=== PATIENT | female | born 1950 | race Hispanic/Latino ===

== ENCOUNTER 2020-06-06 09:56 | Emergency (ER) | payer OTHER ==
[2020-06-06 11:01] LABS: Urine Bacteria 20-50 /HPF (<20); Urine Culture Reflex Order REFLEXED
[2020-06-06] MEDS ORDERED: HYDROCODONE/APAP 7.5/325 MG TAB ONE (11:16)
[2020-06-06] MEDS ORDERED: IBUPROFEN 400 MG TAB ONE (11:17)
[2020-06-06 11:29] LABS: Urine Blood 2+ (NEG); Urine Glucose NEGATIVE (NEG); Urine Protein 2+ (NEG); Urine Specific Gravity >1.030 (1.005-1.030); Urine pH 5.5 (5.0-7.0)
[2020-06-06] MEDS ORDERED: LIDOCAINE 1% MPF 2 ML AMPULE ONE (11:44)
[2020-06-06] MEDS ORDERED: CEFTRIAXONE 1000 MG/VIAL ONE (11:45)
--- NOTE | 2020-06-06 12:03 | RAD REPORT ---
EXAM DESCRIPTION: RAD - Pelvis - 06/06/2020 11:10 am CLINICAL HISTORY: PAIN COMPARISON: No comparisons TECHNIQUE: AP imaging of the pelvis was obtained. FINDINGS: Detail is limited by body habitus. Lower lumbar degenerative change present but only parti ally imaged. Mild to moderate SI joint degenerative changes are seen. No fracture of the bony pelvis. No pathologic bone process seen. Patient has mild symmetric bilateral hip joint degenerative change. Minimal sclerosis and spurring changes along each superior acetabular rim. Each joint space is narro wed. No acute proximal femur finding. No periarticular abnormality identified. IMPRESSION: Symmetric bilateral hip joint degenerative change with no acute finding. Bilateral SI joint degenerative change also without acute or destructive component.
--- NOTE | 2020-06-06 12:05 | RAD REPORT ---
EXAM DESCRIPTION: RAD - Hip Right 2 View - 06/06/2020 11:10 am CLINICAL HISTORY: PAIN COMPARISON: No comparisons FINDINGS: AP and frog-leg views of the right hip were obtained. Detail is limited by the amount of overlying soft tissues. There is no fracture or dislocation. No AV N or focal head abnormality. Mild right hip joint degenerative change seen. There is minimal sclerosi s and spurring along the superior acetabular rim. Medial joint space is narrowed. No periarticular ma ss or hematoma. IMPRESSION: Right hip joint degenerative changes are present but no acute or destructive finding see n.
--- NOTE | 2020-06-06 12:11 | ER ---
Nurse's Notes [facility] Name: Trisha Watson Age: 69 yrs Sex: Female : 1950 Arrival Date: 06/06/2020 Time: 10:00 Bed 8 Private MD: Diagnosis: Pain in right hip;Urinary tract infection, site not specified Presentation: 06/06 10:15 Chief complaint: Patient states: has chronic right hip pain that gt worse yesterday and iw also also has urgency when she urinates and sometimes she has the urge but can't go, urinary s/s started two days ago. Coronavirus screen: At this time, the client does not indicate any symptoms associated with coronavirus-19. Ebola Screen: Patient negative for fever greater than or equal to 101.5 degrees Fahrenheit, and additional compatible Ebola Virus Disease symptoms Patient denies exposure to infectious person. Patient denies travel to an Ebola-affected area in the 21 days before illness onset. No symptoms or risks identified at this time. Initial Sepsis Screen: Does the patient meet any 2 criteria? No. Patient's initial sepsis screen is negative. Does the patient have a suspected source of infection? No. Patient's initial sepsis screen is negative. Risk Assessment: Do you want to hurt yourself or someone else? Patient reports no desire to harm self or others. Onset of symptoms was June 04, 2020. 10:15 Method Of Arrival: Wheelchair 10:15 Acuity: NABIL 3 iw Historical: - Allergies: 10:18 No Known Allergies; iw - Home Meds: 10:18 None [Active]; iw - PMHx: 10:18 None; iw - PSHx: 10:18 Cholecystectomy; iw - Immunization history:: Adult Immunizations not up to date. - Social history:: Smoking status: Patient reports the use of cigarette tobacco products, smokes one-half pack cigarettes per day. Screenin:20 Abuse screen: Denies threats or abuse. Nutritional screening: No deficits noted. aa5 Tuberculosis screening: No symptoms or risk factors identified. Fall Risk None identified. Assessment: 10:20 General: Appears uncomfortable, Behavior is calm, cooperative. Pain: Complains of pain aa5 in right hip Pain does not radiate. Pain currently is 8 out of 10 on a pain scale. Quality of pain is described as sharp, Is continuous, Aggravated by increased activity, repositioning, walking. Neuro: Level of Consciousness is awake, alert, obeys commands, Oriented to person, place, time, situation. Cardiovascular: Patient's skin is warm and dry. Respiratory: Airway is patent Respiratory effort is even, unlabored, Respiratory pattern is regular, symmetrical. GI: No signs and/or symptoms were reported involving the gastrointestinal system. : Reports urgency, urinary frequency. EENT: No signs and/or symptoms were reported regarding the EENT system. Derm: Skin is pink, warm \T\ dry. Musculoskeletal: Range of motion: intact in all extremities, Reports pain in right hip. 11:08 Reassessment: Patient is alert, oriented x 3, equal unlabored respirations, skin aa5 warm/dry/pink. 11:35 Reassessment: Patient is alert, oriented x 3, equal unlabored respirations, skin aa5 warm/dry/pink. 11:35 Reassessment: Patient states feeling better. aa5 12:25 Reassessment: Patient is alert, oriented x 3, equal unlabored respirations, skin aa5 warm/dry/pink. Pt able to ambulate using cane without difficulty. Pt reports pain has significantly improved. . Vital Signs: 10:15 BP 170 / 85; Pulse 60; Resp 16; Temp 98.5; Pulse Ox 99% on R/A; Weight 90.72 kg; Height iw 5 ft. 3 in. (160.02 cm); Pain 9/10; 12:00 BP 154 / 82; Pulse 62; Resp 18 S; Pulse Ox 99% on R/A; aa5 10:15 Body Mass Index 35.43 (90.72 kg, 160.02 cm) iw ED Course: 10:00 Patient arrived in ED. as 10:17 Triage completed. iw 10:18 Arm band placed on. iw 10:20 Boyd Doran PA is PHCP. cp 10:20 Boyd Nolasco MD is Attending Physician. cp 10:20 Sanjana Boss, ISAK is Primary Nurse. aa5 10:20 Patient has correct armband on for positive identification. Bed in low position. Call aa5 light in reach. Side rails up X2. Pulse ox on. NIBP on. 11:10 XRAY Pelvis In Process Unspecified. EDMS 11:10 XRAY Hip RIGHT 2 view In Process Unspecified. EDMS 12:25 No provider procedures requiring assistance completed. Patient did not have IV access aa5 during this emergency room visit. Administered Medications: 11:08 Drug: Ibuprofen 800 mg Route: PO; aa5 11:35 Follow up: Response: No adverse reaction aa5 11:08 Drug: Hydrocodone-Acetaminophen (7.5 mg-325 mg) 2 tabs Route: PO; aa5 11:35 Follow up: Response: No adverse reaction aa5 11:28 CANCELLED (Physician Discretion): Rocephin - (cefTRIAXone) 1 grams IVPB once over 30 aa5 mins; (mix in 50 mL NS) 11:41 Drug: Rocephin (cefTRIAXone) 1 grams Route: IM; Site: right vastus lateralis; jl7 12:00 Follow up: Response: No adverse reaction aa5 Outcome: 12:11 Discharge ordered by MD. cp 12:25 Discharged to home ambulatory. aa5 12:25 Condition: improved 12:25 Discharge instructions given to patient, Instructed on discharge instructions, follow up and referral plans. medication usage, Demonstrated understanding of instructions, follow-up care, medications, Prescriptions given X 3. 12:26 Patient left the ED. iw Addendum: 06/09/2020 07:11 Addendum: Culture Results: Positive urine culture. No further action required. Bacteria e b sensitive to prescribed antibiotic. Signatures: Dispatcher [employer] EDMS Steff Mccarty Irene, ISAK PARISI iw Sanjana Boss RN RN aa5 Boyd Doran PA PA cp Leal, Jahala, RN RN jl7 Bree Gustafson
--- NOTE | 2020-06-06 12:11 | EDPHYS ---
Physician Documentation [facility] Name: Trisha Watson Age: 69 yrs Sex: Female : 1950 Arrival Date: 06/06/2020 Time: 10:00 Bed 8 Private MD: ED Physician Boyd Nolasco HPI: 06/06 10:30 This 69 yrs old Female presents to ER via Wheelchair with complaints of Hip cp Pain, Urinary Problem. 10:30 The patient or guardian reports pain. patient reports chronic hip pain that worsened cp yesterday. Denies injury. The complaints affect the right hip. Associated signs and symptoms: Pertinent positives: urinary frequency and urgency, Pertinent negatives: abdominal pain, chest pain, fever, incontinence, low back pain. Severity of symptoms: in the emergency department the symptoms are unchanged, despite home interventions. Historical: - Allergies: 10:18 No Known Allergies; iw - Home Meds: 10:18 None [Active]; iw - PMHx: 10:18 None; iw - PSHx: 10:18 Cholecystectomy; iw - Immunization history:: Adult Immunizations not up to date. - Social history:: Smoking status: Patient reports the use of cigarette tobacco products, smokes one-half pack cigarettes per day. ROS: 10:35 Constitutional: Negative for body aches, chills, fever, poor PO intake. cp 10:35 Eyes: Negative for injury, pain, redness, and discharge. cp 10:35 ENT: Negative for ear pain, sore throat, difficulty swallowing, difficulty handling secretions. 10:35 Cardiovascular: Negative for chest pain, edema, palpitations. 10:35 Respiratory: Negative for cough, shortness of breath, wheezing. 10:35 Abdomen/GI: Negative for abdominal pain, nausea, vomiting, and diarrhea. 10:35 Back: Negative for pain at rest, pain with movement. 10:35 : Positive for urinary frequency, small amounts, Negative for burning with urination. 10:35 Skin: Negative for rash. 10:35 Neuro: Negative for altered mental status, weakness. 10:35 All other systems are negative. Exam: 10:45 Constitutional: The patient appears in no acute distress, alert, awake, cp non-diaphoretic, non-toxic, well developed, well nourished, obese. 10:45 Head/Face: Normocephalic, atraumatic. cp 10:45 Eyes: Periorbital structures: appear normal, Conjunctiva: normal, no exudate, no injection, Sclera: no appreciated abnormality, Lids and lashes: appear normal, bilaterally. 10:45 ENT: External ear(s): are unremarkable, Nose: is normal, Posterior pharynx: Airway: no evidence of obstruction, patent. 10:45 Neck: ROM/movement: is normal, is supple, without pain, no range of motions limitations, no nuchal rigidity. 10:45 Chest/axilla: Inspection: normal, Palpation: is normal, no crepitus, no tenderness. 10:45 Cardiovascular: Rate: normal, Rhythm: regular. 10:45 Respiratory: the patient does not display signs of respiratory distress, Respirations: normal, no use of accessory muscles, no retractions, labored breathing, is not present, Breath sounds: are clear throughout, no decreased breath sounds. 10:45 Abdomen/GI: Inspection: abdomen appears normal, Bowel sounds: active, all quadrants, Palpation: abdomen is soft and non-tender, in all quadrants, voluntary guarding, is not appreciated, involuntary guarding, is not appreciated. 10:45 Back: pain, is absent, ROM is normal. 10:45 Musculoskeletal/extremity: ROM: limited passive range of motion due to pain, in the right hip, Perfusion: the extremity is normally perfused throughout, the right leg Sensation intact. Joints: the right hip displays painful range of motion, tenderness. 10:45 Skin: no rash present. 10:45 Neuro: Orientation: to person, place \T\ time. Mentation: is normal, Motor: moves all fours, strength is normal, Sensation: no obvious gross deficits. Vital Signs: 10:15 BP 170 / 85; Pulse 60; Resp 16; Temp 98.5; Pulse Ox 99% on R/A; Weight 90.72 kg; Height iw 5 ft. 3 in. (160.02 cm); Pain 9/10; 12:00 BP 154 / 82; Pulse 62; Resp 18 S; Pulse Ox 99% on R/A; aa5 10:15 Body Mass Index 35.43 (90.72 kg, 160.02 cm) iw MDM: 10:22 Patient medically screened. cp 11:00 Differential diagnosis: hip fracture, intertrochanteric fracture, femoral neck cp fracture, femoral shaft fracture. 12:09 Data reviewed: vital signs, nurses notes, lab test result(s), urinalysis, radiologic cp studies, plain films. Counseling: I had a detailed discussion with the patient and/or guardian regarding: the historical points, exam findings, and any diagnostic results supporting the discharge/admit diagnosis, lab results, radiology results, the need for outpatient follow up, a family practitioner, to return to the emergency department if symptoms worsen or persist or if there are any questions or concerns that arise at home. Response to treatment: the patient's symptoms have markedly improved after treatment, and as a result, I will discharge patient. 06/06 10:23 Order name: Urine Microscopic Only; Complete Time: 11:25 cp 06/06 11:25 Interpretation: Normal except: UWBC LOADED; URBC 5-10; UBACT 20-50. cp 06/06 11:02 Order name: Urine Culture EDMS 06/06 10:44 Order name: XRAY Pelvis; Complete Time: 12:09 cp 06/06 10:44 Order name: XRAY Hip RIGHT 2 view; Complete Time: 12:09 cp 06/06 11:14 Order name: Urine Dipstick--Ancillary (enter results); Complete Time: 12:09 bd 06/06 12:09 Interpretation: Normal except: USPGR >1.030; UBLD 2+; UPROT 2+; U NIT POSITIVE; UESTR cp 1+. 06/06 10:23 Order name: Urine Dipstick-Ancillary (obtain specimen); Complete Time: 10:42 cp 06/06 11:26 Order name: [facility] [place]. Order: ambulate patient please; Complete Time: 12:26 cp Administered Medications: 11:08 Drug: Ibuprofen 800 mg Route: PO; aa5 11:35 Follow up: Response: No adverse reaction aa5 11:08 Drug: Hydrocodone-Acetaminophen (7.5 mg-325 mg) 2 tabs Route: PO; aa5 11:35 Follow up: Response: No adverse reaction aa5 11:28 CANCELLED (Physician Discretion): Rocephin - (cefTRIAXone) 1 grams IVPB once over 30 aa5 mins; (mix in 50 mL NS) 11:41 Drug: Rocephin (cefTRIAXone) 1 grams Route: IM; Site: right vastus lateralis; jl7 12:00 Follow up: Response: No adverse reaction aa5 Disposition: 06/07 10:47 Co-signature as Attending Physician, Boyd Nolasco MD I agree with the assessment and [facility] plan of care. Disposition: 06/06/20 12:11 Discharged to Home. Impression: Pain in right hip, Urinary tract infection, site not specified. - Condition is Stable. - Discharge Instructions: Urinary Tract Infection, Adult, Hip Pain. - Prescriptions for Mobic 7.5 mg Oral Tablet - take 1 tablet by ORAL route once daily take with food; 20 tablet. Tramadol 50 mg Oral Tablet - take 1 tablet by ORAL route every 8 hours as needed; 12 tablet. Augmentin 875- 125 mg Oral Tablet - take 1 tablet by ORAL route every 12 hours for 7 days; 14 tablet. - Medication Reconciliation Form, Thank You Letter, Antibiotic Education, Prescription Opioid Use form. - Follow up: Private Physician; When: 2 - 3 days; Reason: Recheck today's complaints. - Problem is new. - Symptoms have improved. Signatures: Dispatcher [employer] EDBoyd Cast MD MD cha Williams, Irene RN RN Sanjana Morrissey RN RN aa5 Boyd Doran PA PA Vianey Hernadez RN RN jl7 Corrections: (The following items were deleted from the chart) 06/06 11:28 11:26 Rocephin - (cefTRIAXone) 1 grams IVPB once over 30 mins; (mix in 50 mL NS) aa5 ordered. cp 12:26 12:11 06/06/2020 12:11 Discharged to Home. Impression: Pain in right hip; Urinary tract iw infection, site not specified. Condition is Stable. Forms are Medication Reconciliation Form, Thank You Letter, Antibiotic Education, Prescription Opioid Use. Follow up: Private Physician; When: 2 - 3 days; Reason: Recheck today's complaints. Problem is new. Symptoms have improved. cp
[2020-06-06 12:31] VITALS: BP 170/85; TEMP 98.5; O2SAT 99
== END 2020-06-06 12:26 | disposition home or self-care (01) ==
LOC: ER 09:56
DX: N39.0 Urinary tract infection, site not specified (principal); F17.210 Nicotine dependence, cigarettes, uncomplicated
CPT/HCPCS: 87088; 87086; 87077; 87186; 72170; 73502; 96372; 99284; J2001; 81003; 81015

== ENCOUNTER → 2023-11-02 | Emergency (ER) | payer OTHER ==
[~2023-11-02] MED LIST: HYDROCODONE/APAP 7.5/325 MG TAB ONE
--- OUTSIDE RECORDS SUMMARY | 2023-11-02 07:59 | XMS REPORT | Continuity of Care Document ---
Author Name Unknown Address [address] [facility] [address] [place] [address] [facility] thconnect Address [address] [facility] [place] [address] Care Team Providers Care Field Marketing Representative Name Role Phone Regina Shepard Primary Care Physician [phone] JOYCE WEBER Attending Clinician Joyce Perry MD Attending Clinician [phone] Doctor Unassigned, [place] Attending Clinician U JOYCE Hodges Admitting Clinician Joyce Perry MD Admitting Clinician [phone] Payers Payer Name Policy Type Policy Number Effective Date Expirati on Date Source [facility] DUAL COMP HMO D SNP [id number] 2023 00:00:00 [employer] [id number] 2022 00:00:00 Allergies, Adverse Reactions, Alerts Allergy Name Allergy Type Status Severity Reaction(s) Onset Date Inactive Date Treating Clinician Comments Source NO KNOWN ALLERGIE S Drug Class Active [facility] Social History Social Habit Start Date Stop Date Quantity Comments Source History of tobacco use Cigarette Smoker [facility] History of Social function 2023-03-11 00:00:00 2023-03-11 00:00:00 [facility] Tobacco use and exposure 2023-02-19 00:00:00 2023-02-19 00:00:00 Smokeless tobacco non-user [facility] Tobacco Comment 2023-02-19 00:00:00 2023-02-19 00:00:[address] [facility] Sex Assigned At 1950 00:00:00 1950 00:00:00 [facility] Smoking Status Start Date Stop Date Source Tobacco smoking consumption unknown [facility] Smokes tobacco daily 2023-02-19 00:00:00 [facility] Medications Ordered Medication Name Filled Medication Name Start Date Stop Date Current Medication? Ordering Clinician Indication Dosage Frequency Signature (SIG) Comments Components Source lactated ringers IV infusion 1,000 mL 03-11 15:00: 00 Yes 1000mL at 50 mL/hr, 1,000 mL, IV Infusion, CONTINUOUS , Starting on Thu03/11/23 at 1000, Until Discontinu ed, Routine, PACU [facility] lactated ringers IV infusion 1,000 mL 03-11 15:00: 00 03-11 18:06 :50 No 1000mL at 50 mL/hr, 1,000 mL, IV Infusion, CONTINUOUS , Starting on Thu03/11/23 at 1000, Until Thu03/11/23 at 1306, Routine, PACU [facility] HYDROmorphO ne (DILAUDID) injection 0.2 mg 03-11 14:54: 48 Yes .2mg 0.2 mg, Slow IV Push, Q5MIN PRN, 10 doses, Starting on Thu03/11/23 at 0954, Until Discontinu ed, Routine, Pain (scale 7-10), PACU
Us e approved by (Faculty): PACU USE -ANESTHESI A SERVICE-HY DROMORPHON E INJECTIONS [facility] FENTanyl PF (SUBLIMAZE (PF)) injection 25 mcg 03-11 14:54: 48 Yes 25ug 25 mcg, Slow IV Push, Q5MIN PRN, 4 doses, Starting on Thu03/11/23 at 0954, Until Discontinu ed, Routine, Pain (scale 4-6), PACU [facility] proMETHazin e (PHENERGAN) 12.5 mg in NaCl 0.9% (NS) 50 mL IV piggyback 03-11 14:54: 48 Yes 12.5mg 12.5 mg, IV Piggyback, PRN, 1 dose, Starting on Thu03/11/23 at 0954, Until Discontinu ed, Routine, Nausea and Vomiting (N/V), PACU [facility] HYDROmorphO ne (DILAUDID) injection 0.2 mg 03-11 14:54: 48 03-11 18:06 :49 No .2mg 0.2 mg, Slow IV Push, Q5MIN PRN, 10 doses, Starting on Thu03/11/23 at 0954, Until Thu03/11/23 at 1306, Routine, Pain (scale 7-10), PACU
Us e approved by (Faculty): PACU USE -ANESTHESI A SERVICE-HY DROMORPHON E INJECTIONS [facility] FENTanyl PF (SUBLIMAZE (PF)) injection 25 mcg 03-11 14:54: 48 03-11 18:06 :49 No 25ug 25 mcg, Slow IV Push, Q5MIN PRN, 4 doses, Starting on Thu03/11/23 at 0954, Until Thu03/11/23 at 1306, Routine, Pain (scale 4-6), PACU [facility] proMETHazin e (PHENERGAN) 12.5 mg in NaCl 0.9% (NS) 50 mL IV piggyback 03-11 14:54: 48 03-11 18:06 :49 No 12.5mg 12.5 mg, IV Piggyback, PRN, 1 dose, Starting on Thu03/11/23 at 0954, Until Thu03/11/23 at 1306, Routine, Nausea and Vomiting (N/V), PACU [facility] sodium chloride (NS) injection 03-11 14:37: 00 03-11 14:47 :58 No PRN, Starting on Thu03/11/23 at 0937, Until Thu03/11/23 at 0947, Routine, Intra-op [facility] neomycin-po lymyxin-dex amethasone (MAXITROL) 3.5 mg/g-10,000 unit/g-0.1 % ophthalmic ointment 03-11 14:21: 00 03-11 14:47 :58 No PRN, Starting on Thu03/11/23 at 0921, Until Thu03/11/23 at 09, Routine, Intra-op [facility] EPINEPHrine 1:1,000 (1 mg/mL) (ADRENALIN) injection 03-11 14:20: 00 03-11 14:47 :58 No PRN, Starting on Thu03/11/23 at 0920, Until Thu03/11/23 at 09, Routine, Intra-op [facility] water for irrigation irrigation solution 03-11 14:19: 00 03-11 14:47 :58 No PRN, Starting on Thu03/11/23 at 0919, Until Thu03/11/23 at 09, Routine, Intra-op [facility] eye block syringe 11 mL 03-11 14:14: 00 03-11 14:47 :58 No PRN, Starting on Thu03/11/23 at 0914, Until Thu03/11/23 at 09, Intra-op [facility] Hyaluronida se, Human Recomb. (HYLENEX) injection 03-11 14:14: 00 03-11 14:47 :58 No PRN, Starting on Thu03/11/23 at 0914, Until Thu03/11/23 at 0947, Routine, Intra-op [facility] chondroitin sulf-sod hyaluronate (DUOVISC VISCO ELASTIC) intraocular injection 03-11 14:14: 00 03-11 14:47 :58 No PRN, Starting on Thu03/11/23 at 0914, Until Thu03/11/23 at 0947, Routine, Intra-op [facility] dexamethaso ne (DECADRON PHOSPHATE) injection 03-11 14:13: 00 03-11 14:47 :58 No PRN, Starting on Thu03/11/23 at 0913, Until Thu03/11/23 at 0947, Routine, Intra-op [facility] ceFAZolin (ANCEF) injection 03-11 14:13: 00 03-11 14:47 :58 No PRN, Starting on Thu03/11/23 at 0913, Until Thu03/11/23 at 0947, JL, Intra-op [facility] carbachoL (MIOSTAT) 0.01 % intraocular injection 03-11 14:13: 00 03-11 14:47 :58 No PRN, Starting on Thu03/11/23 at 0913, Until Thu03/11/23 at 0947, Routine, Intra-op [facility] balanced salt irrig soln comb1 (BSS PLUS) ophthalmic solution 500 mL bag 03-11 14:12: 00 03-11 14:47 :58 No PRN, Starting on Thu03/11/23 at 0912, Until Thu03/11/23 at 0947, Routine, Intra-op [facility] cyclopent 1%-tropic 1%-phenyl 2.5%-ketor 0.5% (MYDRIATIC #5) ophthalmic solution syringe 0.5 mL 03-11 13:30: 00 03-11 13:41 :00 No .5mL 0.5 mL, Right Eye, ONCE, 1 dose, On Thu03/11/23 at 0830, Routine, DSU Pre-op [facility] lactated ringers IV infusion 1,000 mL 03-11 13:30: 00 03-11 13:41 :00 No 1000mL at 42 mL/hr, 1,000 mL, IV Infusion, ONCE, 1 dose, On Thu03/11/23 at 0830, Routine, DSU Pre-op [facility] cyclopent 1%-tropic 1%-phenyl 2.5%-ketor 0.5% (MYDRIATIC #5) ophthalmic solution syringe 0.5 mL 03-11 13:30: 00 03-11 13:41 :00 No .5mL 0.5 mL, Right Eye, ONCE, 1 dose, On Thu03/11/23 at 0830, Routine, DSU Pre-op [facility] lactated ringers IV infusion 1,000 mL 03-11 13:30: 00 03-11 13:41 :00 No 1000mL at 42 mL/hr, 1,000 mL, IV Infusion, ONCE, 1 dose, On Thu03/11/23 at 0830, Routine, DSU Pre-op [facility] pioglitazon e 45 mg tablet 03-11 11:01: 44 Yes 45mg Take 1 tablet by mouth in the morning. [facility] metFORMIN 500 mg 24 hr tablet 03-11 11:01: 44 Yes 500mg Take 1 tablet by mouth daily with breakfast. [facility] diclofenac 50 mg tablet 03-11 11:01: 44 Yes 50mg Take 1 tablet by mouth in the morning and 1 tablet at noon and 1 tablet in the evening. [facility] semaglutide 14 mg Tab 03-11 11:01: 44 Yes Take by mouth weekly. [facility] cyclobenzap rine 10 mg tablet 03-11 11:01: 44 Yes 10mg Take 1 tablet by mouth in the morning and 1 tablet at noon and 1 tablet in the evening. [facility] pioglitazon e 45 mg tablet 03-11 11:01: 44 Yes 45mg Take 1 tablet by mouth in the morning. [facility] metFORMIN 500 mg 24 hr tablet 03-11 11:01: 44 Yes 500mg Take 1 tablet by mouth daily with breakfast. [facility] diclofenac 50 mg tablet 03-11 11:01: 44 Yes 50mg Take 1 tablet by mouth in the morning and 1 tablet at noon and 1 tablet in the evening. [facility] semaglutide 14 mg Tab 03-11 11:01: 44 Yes Take by mouth weekly. [facility] cyclobenzap rine 10 mg tablet 03-11 11:01: 44 Yes 10mg Take 1 tablet by mouth in the morning and 1 tablet at noon and 1 tablet in the evening. [facility] lactated ringers IV infusion 1,000 mL 02-25 15:45: 00 Yes 1000mL at 50 mL/hr, 1,000 mL, IV Infusion, CONTINUOUS , Starting on Thu02/25/23 at 1045, Until Discontinu ed, Routine, PACU [facility] lactated ringers IV infusion 1,000 mL 02-25 15:45: 00 02-25 18:07 :56 No 1000mL at 50 mL/hr, 1,000 mL, IV Infusion, CONTINUOUS , Starting on Thu02/25/23 at 1045, Until Thu02/25/23 at 1307, Routine, PACU [facility] HYDROmorphO ne (DILAUDID) injection 0.2 mg 02-25 15:38: 13 Yes .2mg 0.2 mg, Slow IV Push, Q5MIN PRN, 10 doses, Starting on Thu02/25/23 at 1038, Until Discontinu ed, Routine, Pain (scale 7-10), PACU
Us e approved by (Faculty): PACU USE -ANESTHESI A SERVICE-HY DROMORPHON E INJECTIONS [facility] FENTanyl PF (SUBLIMAZE (PF)) injection 25 mcg 02-25 15:38: 13 Yes 25ug 25 mcg, Slow IV Push, Q5MIN PRN, 4 doses, Starting on Thu02/25/23 at 1038, Until Discontinu ed, Routine, Pain (scale 4-6), PACU [facility] HYDROmorphO ne (DILAUDID) injection 0.2 mg 02-25 15:38: 13 02-25 18:07 :56 No .2mg 0.2 mg, Slow IV Push, Q5MIN PRN, 10 doses, Starting on Thu02/25/23 at 1038, Until Thu02/25/23 at 1307, Routine, Pain (scale 7-10), PACU
Us e approved by (Faculty): PACU USE -ANESTHESI A SERVICE-HY DROMORPHON E INJECTIONS [facility] FENTanyl PF (SUBLIMAZE (PF)) injection 25 mcg 02-25 15:38: 13 02-25 18:07 :56 No 25ug 25 mcg, Slow IV Push, Q5MIN PRN, 4 doses, Starting on Thu02/25/23 at 1038, Until Thu02/25/23 at 1307, Routine, Pain (scale 4-6), PACU [facility] proMETHazin e (PHENERGAN) 12.5 mg in NaCl 0.9% (NS) 50 mL IV piggyback 02-25 15:38: 12 Yes 12.5mg 12.5 mg, IV Piggyback, PRN, 1 dose, Starting on Thu02/25/23 at 1038, Until Discontinu ed, Routine, Nausea and Vomiting (N/V), PACU [facility] proMETHazin e (PHENERGAN) 12.5 mg in NaCl 0.9% (NS) 50 mL IV piggyback 02-25 15:38: 12 02-25 18:07 :56 No 12.5mg 12.5 mg, IV Piggyback, PRN, 1 dose, Starting on Thu02/25/23 at 1038, Until Thu02/25/23 at 1307, Routine, Nausea and Vomiting (N/V), PACU [facility] sodium chloride (NS) injection 02-25 15:28: 00 02-25 15:53 :35 No PRN, Starting on Thu02/25/23 at 1028, Until Thu02/25/23 at 1053, Routine, Intra-op [facility] neomycin-po lymyxin-dex amethasone (MAXITROL) 3.5 mg/g-10,000 unit/g-0.1 % ophthalmic ointment 02-25 15:28: 00 02-25 15:53 :35 No PRN, Starting on Thu02/25/23 at 1028, Until Thu02/25/23 at 1053, Routine, Intra-op [facility] dexamethaso ne (DECADRON PHOSPHATE) injection 02-25 15:28: 00 02-25 15:53 :35 No PRN, Starting on Thu02/25/23 at 1028, Until Thu02/25/23 at 1053, Routine, Intra-op [facility] ceFAZolin (ANCEF) injection 02-25 15:28: 00 02-25 15:53 :35 No PRN, Starting on Thu02/25/23 at 1028, Until Thu02/25/23 at 1053, JL, Intra-op [facility] carbachoL (MIOSTAT) 0.01 % intraocular injection 02-25 15:27: 00 02-25 15:53 :35 No PRN, Starting on Thu02/25/23 at 1027, Until Thu02/25/23 at 1053, Routine, Intra-op [facility] chondroitin sulf-sod hyaluronate (DUOVISC VISCO ELASTIC) intraocular injection 02-25 15:18: 00 02-25 15:53 :35 No PRN, Starting on Thu02/25/23 at 1018, Until Thu02/25/23 at 1053, Routine, Intra-op [facility] EPINEPHrine 1:1,000 (1 mg/mL) (ADRENALIN) injection 02-25 15:17: 00 02-25 15:53 :35 No PRN, Starting on Thu02/25/23 at 1017, Until Thu02/25/23 at 1053, Routine, Intra-op [facility] balanced salt irrig soln comb1 (BSS PLUS) ophthalmic solution 500 mL bag 02-25 15:17: 00 02-25 15:53 :35 No PRN, Starting on Thu02/25/23 at 1017, Until Thu02/25/23 at 1053, Routine, Intra-op [facility] water for irrigation irrigation solution 02-25 15:11: 00 02-25 15:53 :35 No PRN, Starting on Thu02/25/23 at 1011, Until Thu02/25/23 at 1053, Routine, Intra-op [facility] Hyaluronida se, Human Recomb. (HYLENEX) injection 02-25 15:07: 00 02-25 15:53 :35 No PRN, Starting on Thu02/25/23 at 1007, Until Thu02/25/23 at 1053, Routine, Intra-op [facility] eye block syringe 11 mL 02-25 15:07: 00 02-25 15:53 :35 No PRN, Starting on Thu02/25/23 at 1007, Until Thu02/25/23 at 1053, Intra-op [facility] cyclopent 1%-tropic 1%-phenyl 2.5%-ketor 0.5% (MYDRIATIC #5) ophthalmic solution syringe 0.5 mL 02-25 14:30: 00 02-25 13:44 :00 No .5mL 0.5 mL, Left Eye, ONCE, 1 dose, On Thu02/25/23 at 0930, Routine, DSU Pre-op [facility] cyclopent 1%-tropic 1%-phenyl 2.5%-ketor 0.5% (MYDRIATIC #5) ophthalmic solution syringe 0.5 mL 02-25 14:30: 00 02-25 13:44 :00 No .5mL 0.5 mL, Left Eye, ONCE, 1 dose, On Thu02/25/23 at 0930, Routine, DSU Pre-op [facility] lactated ringers IV infusion 1,000 mL 02-25 13:45: 00 02-25 13:41 :00 No 1000mL at 42 mL/hr, 1,000 mL, IV Infusion, ONCE, 1 dose, On Thu02/25/23 at 0845, Routine, DSU Pre-op [facility] lactated ringers IV infusion 1,000 mL 02-25 13:45: 00 02-25 13:41 :00 No 1000mL at 42 mL/hr, 1,000 mL, IV Infusion, ONCE, 1 dose, On Thu02/25/23 at 0845, Routine, DSU Pre-op [facility] pioglitazon e 45 mg tablet 02-25 11:07: 55 Yes 45mg Take 1 tablet by mouth in the morning. [facility] metFORMIN 500 mg 24 hr tablet 12 11:07: 55 Yes 500mg Take 1 tablet by mouth daily with breakfast. [facility] diclofenac 50 mg tablet 02-25 11:07: 55 Yes 50mg Take 1 tablet by mouth in the morning and 1 tablet at noon and 1 tablet in the evening. [facility] semaglutide 14 mg Tab 02-25 11:07: 55 Yes Take by mouth weekly. [facility] cyclobenzap rine 10 mg tablet 02-25 11:07: 55 Yes 10mg Take 1 tablet by mouth in the morning and 1 tablet at noon and 1 tablet in the evening. [facility] pioglitazon e 45 mg tablet 02-25 11:07: 55 Yes 45mg Take 1 tablet by mouth in the morning. [facility] metFORMIN 500 mg 24 hr tablet 02-25 11:07: 55 Yes 500mg Take 1 tablet by mouth daily with breakfast. [facility] diclofenac 50 mg tablet 02-25 11:07: 55 Yes 50mg Take 1 tablet by mouth in the morning and 1 tablet at noon and 1 tablet in the evening. [facility] semaglutide 14 mg Tab 02-25 11:07: 55 Yes Take by mouth weekly. [facility] cyclobenzap rine 10 mg tablet 02-25 11:07: 55 Yes 10mg Take 1 tablet by mouth in the morning and 1 tablet at noon and 1 tablet in the evening. [facility] pioglitazon e 45 mg tablet 02-25 11:07: 55 Yes 45mg Take 1 tablet by mouth in the morning. [facility] metFORMIN 500 mg 24 hr tablet 02-25 11:07: 55 Yes 500mg Take 1 tablet by mouth daily with breakfast. [facility] diclofenac 50 mg tablet 02-25 11:07: 55 Yes 50mg Take 1 tablet by mouth in the morning and 1 tablet at noon and 1 tablet in the evening. [facility] semaglutide 14 mg Tab 02-25 11:07: 55 Yes Take by mouth weekly. [facility] cyclobenzap rine 10 mg tablet 02-25 11:07: 55 Yes 10mg Take 1 tablet by mouth in the morning and 1 tablet at noon and 1 tablet in the evening. [facility] lisinopril 10 mg tablet 2016-08 00:00: 00 Yes 10mg Take 1 tablet by mouth at bedtime. [facility] sulfamethox azole-trime thoprim 800-160 mg per tablet 2016-08 00:00: 00 Yes 1{tbl} Take 1 tablet by mouth every 12 (twelve) hours. [facility] lisinopril 10 mg tablet 2016-08 00:00: 00 Yes 10mg Take 1 tablet by mouth at bedtime. [facility] sulfamethox azole-trime thoprim 800-160 mg per tablet 2016-08 00:00: 00 Yes 1{tbl} Take 1 tablet by mouth every 12 (twelve) hours. [facility] lisinopril 10 mg tablet 2016-08 00:00: 00 Yes 10mg Take 1 tablet by mouth at bedtime. [facility] sulfamethox azole-trime thoprim 800-160 mg per tablet 2016-08 00:00: 00 Yes 1{tbl} Take 1 tablet by mouth every 12 (twelve) hours. [facility] lisinopril 10 mg tablet 2016-08 00:00: 00 Yes 10mg Take 1 tablet by mouth at bedtime. [facility] sulfamethox azole-trime thoprim 800-160 mg per tablet 2016-08 00:00: 00 Yes 1{tbl} Take 1 tablet by mouth every 12 (twelve) hours. [facility] lisinopril 10 mg tablet 2016-08 00:00: 00 Yes 10mg Take 1 tablet by mouth at bedtime. [facility] sulfamethox azole-trime thoprim 800-160 mg per tablet 2016-08 00:00: 00 Yes 1{tbl} Take 1 tablet by mouth every 12 (twelve) hours. [facility] lisinopril 10 mg tablet 2016-08 00:00: 00 Yes 10mg Take 1 tablet by mouth at bedtime. [facility] sulfamethox azole-trime thoprim 800-160 mg per tablet 2016-08 00:00: 00 Yes 1{tbl} Take 1 tablet by mouth every 12 (twelve) hours. [facility] Vital Signs Vital Name Observation Time Observation Value Comments S ource Respiratory rate 2023-03-11 15:04:00 20 /min [facility] Oxygen saturation in Arterial blood by Pulse oximetry 2023-03-11 15:04:00 99 /min [facility] Systolic blood pressure 2023-03-11 15:02:00 107 mm[Hg] [facility] Diastolic blood pressure 2023-03-11 15:02:00 64 mm[Hg] [facility] Heart rate 2023-03-11 14:45:00 61 /min [facility] Body temperature 2023-03-11 14:42:[address] [facility] Body height 2023-03-05 15:00:00 157.5 cm [facility] Body weight 2023-03-05 15:00:00 92.534 kg [facility] BMI 2023-03-05 15:00:00 37.31 kg/m2 [facility] Systolic blood pressure 2023-03-11 13:41:00 188 mm[Hg] [facility] Diastolic blood pressure 2023-03-11 13:41:00 68 mm[Hg] [facility] Heart rate 2023-03-11 13:30:00 69 /min [facility] Body temperature 2023-03-11 13:30:[address] [facility] Respiratory rate 2023-03-11 13:30:00 21 /min [facility] Oxygen saturation in Arterial blood by Pulse oximetry 2023-03-11 13:30:00 99 /min [facility] Body height 2023-03-05 15:00:00 157.5 cm [facility] Body weight 2023-03-05 15:00:00 92.534 kg [facility] BMI 2023-03-05 15:00:00 37.31 kg/m2 [facility] Systolic blood pressure 2023-02-25 15:45:00 191 mm[Hg] [facility] Diastolic blood pressure 2023-02-25 15:45:00 52 mm[Hg] [facility] Heart rate 2023-02-25 15:45:00 56 /min [facility] Respiratory rate 2023-02-25 15:45:00 25 /min [facility] Oxygen saturation in Arterial blood by Pulse oximetry 2023-02-25 15:45:00 96 /min [facility] Body temperature 2023-02-25 15:32:[address] [facility] Body height 2023-02-19 16:00:00 157.5 cm [facility] Body weight 2023-02-19 16:00:00 95.255 kg [facility] BMI 2023-02-19 16:00:00 38.41 kg/m2 [facility] Systolic blood pressure 2023-02-25 13:35:00 192 mm[Hg] [facility] Diastolic blood pressure 2023-02-25 13:35:00 65 mm[Hg] [facility] Heart rate 2023-02-25 13:35:00 60 /min [facility] Body temperature 2023-02-25 13:35:[address] [facility] Respiratory rate 2023-02-25 13:35:00 14 /min [facility] Oxygen saturation in Arterial blood by Pulse oximetry 2023-02-25 13:35:00 98 /min [facility] Body height 2023-02-19 16:00:00 157.5 cm [facility] Body weight 2023-02-19 16:00:00 95.255 kg [facility] BMI 2023-02-19 16:00:00 38.41 kg/m2 [facility] Procedures Procedure Date / Time Performed Performing Clinician Source PHACOEMULSIFICATION OF CATARACT WITH INTRAOCULAR LENS IMPLANT 2023-03-11 14:04:[address] [facility] POCT GLUCOSE (AUTOMATED) 2023-03-11 13:36:[address] [facility] POCT GLUCOSE (AUTOMATED) 2023-03-11 13:36:[address] [facility] PHACOEMULSIFICATION OF CATARACT WITH INTRAOCULAR LENS IMPLANT 2023-02-25 14:57:[address] [facility] POCT GLUCOSE (AUTOMATED) 2023-02-25 13:34:[address] [facility] POCT GLUCOSE (AUTOMATED) 2023-02-25 13:34:[address] [facility] DAY SURGERY - ADC 2023-02-25 05:01:00 Doctor Unassigned, [place] [facility] ASSIGNMENT OF BENEFITS 2023-02-16 21:56:35 Doctor Unassigned, [place] [facility] Encounters Start Date/Time End Date/Time Encounter Type Admission Type Attending [facility] Care Department Encounter ID Source 2023-10-16 16:04:41 2023-10-16 16:04:41 Outpatient SFA SFA [id number] Steven Henderson 2023-10-14 11:11:38 2023-10-14 11:11:38 Outpatient SFA SFA [id number] Steven Henderson 2023-10-13 08:21:50 2023-10-13 08:21:50 Outpatient SFA SFA [id number] Steven Henderson 2023-09-29 16:51:39 2023-09-29 16:51:39 Outpatient SFA SFA [id number] Steven Henderson 2023-09-04 15:41:00 2023-09-04 15:41:00 Outpatient SFA SFA [id number] Steven Henderson 2023-09-01 14:32:18 2023-09-01 14:32:18 Outpatient SFA SFA [id number] Steven Henderson 2023-06-19 09:26:34 2023-06-19 09:26:34 Outpatient SFA [id number] [id number] Steven Henderson 2023-03-11 08:26:00 2023-03-11 10:10:00 Outpatient R JOYCE WEBER [facility] [id number] [facility] 2023-03-11 08:26:00 2023-03-11 10:10:00 Hospital Encounter Joyce Weber [facility] [id number] [facility] 2023-03-11 09:02:00 2023-03-11 09:36:00 Surgery MartínJoyce [facility] [id number] [facility] 2023-02-25 08:26:00 2023-02-25 11:07:00 Outpatient R JOYCE WEBER [facility] [id number] [facility] 2023-02-25 08:26:00 2023-02-25 11:07:00 Hospital Encounter [place] [facility] [id number] [facility] 2023-02-25 09:33:00 2023-02-25 10:07:00 Surgery Joyce Weber [facility] [id number] [facility] 2023-02-25 00:00:00 2023-02-25 00:00:00 Orders Only Doctor Unassigned, [place] [facility] [id number] [facility] 2023-02-16 00:00:00 2023-02-16 00:00:00 Orders Only Doctor Unassigned, [place] [facility] [id number] [facility] 2023-02-06 10:31:10 2023-02-06 10:31:10 Outpatient [facility] [id number] Steven Henderson 2023-01-06 10:06:29 2023-01-06 10:06:29 Outpatient [facility] [id number] Steven Henderson Results Test Description Test Time Test Comments Results Result Co mments Source [facility] GLUCOSE (AUTOMATED)2023-03-11 13:37:12* Test Item Value Reference Range Interpretation Comme nts POCT GLU (test code = 2877988646) 91 mg/dL 70-110 Lab Interpretation (test cod e = 82103-2) Normal [facility] GLUCOSE (AUTOMATED)2023-02-25 13:37:35* Test Item Value Reference Range Interpretation Comme nts POCT GLU (test code = [id number]) 83 mg/dL 70-110 Lab Interpretation (test cod e = 28411-1) Normal [facility] GLUCOSE (AUTOMATED)2023-02-25 13:37:35* Test Item Value Reference Range Interpretation Comme nts POCT GLU (test code = [id number]) 83 mg/dL 70-110 Lab Interpretation (test cod e = 77394-1) Normal [facility] History and Physical Notes Date/Time Note Provider Source 2023-03-11 08:28:31 P+mYYRRQKEO+YYnAyPDU CdfOcMr3nsZuOM3U/B57u7 HgT1S68xmXzXUYlNPpTJrK0674-77-54E45:28:31F ormatting of this note might be different from the original.H&P UpdateH&P was reviewed and the patient was examined and there was no change in the patient's condition. 82588-1Cqsmjre and physical lmzbFW7390-40-19L72:28:40History and physical noteTXT1.2.840.484925.1.13.104.2.7.2.82711 9|[id number] for patient care[address] Gl[id number] SOVYLDAZNIXNSROY3973-32-63M52:28:401.2.840 .319746.1.72.3.15|1.2.840.873791.1.13.104. [id number] [facility] Notes Date/Time Note Provider Source 2023-03-05 10:09:25 rgPfO3JWOS67QA/C7J4o Rjd5QAMPPDO9wG5GXZ/+do [id number]8B98:09:25F ormatting of this note might be different from the original.Images from the original note were not included.Your procedure is at [facility] on 03/11/23. The address is [address] [place] [address], [facility]. [facility] nursing staff will call you the workday before your procedure to let you know what time to arrive.On the day of your procedure, please go inside that door and check in at the desk.Please note: You may not travel home alone and that includes in a taxi or by bus. We must speak to your Responsible Adult (who will be picking you up) the morning of your procedure, before the start of your procedure. This person must be an adult over the age of 18 years of age. Do not eat any solid food after midnight the night before surgery. You may have sips of clear liquids such as water, gatorade, and sprite up until two hours before your scheduled procedure.You may take your medications with a sip of water as directed by physician. Anticoagulants will be per physician guidance. Medication Note(s)/Instructions: Pt instructed to hold Metformin and Pioglitazone the morning of the procedure. Pending screening, we may test for COVID. If a patient tests positive, their cases are cancelled and/or rescheduled. COVID SCREENING NOTE: Denies COVID symptoms, no testing required.Additional requests, questions, concerns: N/APatient verbalized understanding of pre-op instructions and voiced no further questions at this time. 69088-6Whhpc WqkiBL2785-02-44U68:15:46Nurse NoteTXT1.2.840.821103.1.13.104.2.7.2.75475 9|[id number] for patient care[address] Fn[id number] RNTQAKHUSFTHRXJR9842-45-54F48:15:461.2.840 .483065.1.72.3.15|1.2.840.757070.1.13.104. [id number] [facility]"
--- NOTE | 2023-11-02 09:21 | RAD REPORT ---
EXAM DESCRIPTION: US - Extremity Venous Uni Ltd - 11/02/2023 9:08 am CLINICAL HISTORY: Pain COMPARISON: None. TECHNIQUE: Real-time sonographic evaluation of the right lower extremity deep venous system was perf ormed. FINDINGS: Normal compressibility, flow augmentation, phasic flow and spontaneous flow is identified in the right lower extremity deep venous system. No intraluminal filling defects seen. IMPRESSION: No DVT in the right lower extremity.
--- NOTE | 2023-11-02 09:36 | ER ---
Nurse's Notes [facility] Name: Trisha Watson Age: 72 yrs Sex: Female : 1950 Arrival Date: 11/02/2023 Time: 07:56 Bed 3 Private MD: Diagnosis: Pain in right leg Presentation: 11/01 08:17 Chief complaint: Patient states: pain behind right calf X 4 days. Coronavirus screen: iw At this time, the client does not indicate any symptoms associated with coronavirus-19. Ebola Screen: Patient negative for fever greater than or equal to 101.5 degrees Fahrenheit, and additional compatible Ebola Virus Disease symptoms Patient denies exposure to infectious person. Patient denies travel to an Ebola-affected area in the 21 days before illness onset. No symptoms or risks identified at this time. Initial Sepsis Screen: Does the patient meet any 2 criteria? No. Patient's initial sepsis screen is negative. Does the patient have a suspected source of infection? No. Patient's initial sepsis screen is negative. Risk Assessment: Do you want to hurt yourself or someone else? Patient reports no desire to harm self or others. Onset of symptoms was October 29, 2023. 08:17 Method Of Arrival: Wheelchair iw 08:17 Acuity: NABIL 3 iw Historical: - Allergies: 08:18 No Known Allergies; iw - PMHx: 08:18 Diabetes mellitus; iw - PSHx: 08:18 Appendectomy; Cholecystectomy; iw - Immunization history:: Adult Immunizations up to date. - Social history:: Smoking status: Patient/guardian denies using tobacco, Stopped _ months ago 1. Screenin:42 [facility] ED Fall Risk Assessment (Adult) History of falling in the last 3 months, ll1 including since admission No falls in past 3 months (0 pts) Confusion or Disorientation No (0 pts) Intoxicated or Sedated No (0 pts) Impaired Gait No (0 pts) Mobility Assist Device Used Yes (1 pt) Altered Elimination No (0 pt) Score/Fall Risk Level 0 - 2 = Low Risk Maintained a safe environment, Hourly rounding (assess needs \T\ fall precautionary measures) done. Abuse screen: Denies threats or abuse. Nutritional screening: No deficits noted. Tuberculosis screening: No symptoms or risk factors identified. Assessment: 08:33 General: Appears uncomfortable, Behavior is calm, cooperative, appropriate for age. ll1 Pain: Complains of pain in right leg Pain currently is 10 out of 10 on a pain scale. Quality of pain is described as aching. Neuro: No deficits noted. Cardiovascular: No deficits noted. Musculoskeletal: Circulation, motion, and sensation intact. Capillary refill < 3 seconds, Reports pain in right leg. 09:41 Reassessment: No changes from previously documented assessment. Patient and/or family ll1 updated on plan of care and expected duration. Pain level reassessed. Patient is alert, oriented x 3, equal unlabored respirations, skin warm/dry/pink. Vital Signs: 08:17 BP 181 / 64; Pulse 64; Resp 16; Temp 97.4; Pulse Ox 99% on R/A; Weight 93.89 kg; Height iw 5 ft. 2 in. ; Pain 10/10; 09:42 BP 181 / 63; Pulse 62; Resp 17; Pulse Ox 99% ; Pain 5/10; ll1 08:17 Body Mass Index 37.86 (93.89 kg, 157.48 cm) iw 08:17 Pain Scale: Adult iw 09:42 Pain Scale: Adult ll1 ED Course: 08:02 Patient arrived in ED. rg4 08:03 Jessica Buchanan PA-C is PHCP. sb4 08:03 Garrick Yun DO is Attending Physician. sb4 08:18 Triage completed. iw 08:19 Arm band placed on. iw 08:22 Autumn Burgess, RN is Primary Nurse. ll1 08:23 Patient placed in an exam room, on a stretcher. ll1 08:43 Patient has correct armband on for positive identification. Bed in low position. Call ll1 light in reach. Provided Education on: ER procedures and process. Cardiac monitoring not applicable on this patient. 09:10 Extremity Venous Uni Ltd US In Process Unspecified. EDMS 09:34 Arnoldo Lewis MD is Referral Physician. sb4 09:49 No provider procedures requiring assistance completed. Patient did not have IV access ll1 during this emergency room visit. Administered Medications: 08:34 Drug: Hydrocodone-Acetaminophen PO (7.5 mg-325 mg) 1 tabs PO once Route: PO; ll1 09:48 Follow up: Response: No adverse reaction; Pain is decreased; RASS: Alert and Calm (0) ll1 Medication: 09:49 VIS not applicable for this client. ll1 Outcome: 09:35 Discharge ordered by . sb4 09:42 Patient left the ED. ll1 09:42 Discharged to home ambulatory, ll1 09:42 Condition: stable 09:42 Discharge instructions given to patient, Instructed on discharge instructions, follow up and referral plans. medication usage, Demonstrated understanding of instructions, follow-up care, medications, Prescriptions given X 1, Signatures: Dispatcher [employer] Snow Bolaños RN RN iw Garcia, Rubi rg4 Autumn Burgess RN RN ll1 Jessica Buchanan, PA-C PA-C sb4 Corrections: (The following items were deleted from the chart) 09:48 09:45 Reassessment: No changes from previously documented assessment. Patient and/or ll1 family updated on plan of care and expected duration. Pain level reassessed. Patient is alert, oriented x 3, equal unlabored respirations, skin warm/dry/pink. ll1
--- NOTE | 2023-11-02 09:36 | EDPHYS ---
Physician Documentation [facility] Name: Trisha Watson Age: 72 yrs Sex: Female : 1950 Arrival Date: 11/02/2023 Time: 07:56 Bed 3 Private MD: ED Physician Garrick Yun HPI: 11/01 08:25 This 72 yrs old Female presents to ER via Wheelchair with complaints of Leg sb4 Pain. 08:25 Patient complains of right calf pain that extends up her medial leg x 5 days. She sb4 states that she recently traveled to [place] last week-approximately [address]. Denies any personal or history of blood clots. Denies any chest pain or shortness of breath. Was a daily smoker, quit 2 weeks ago. Historical: - Allergies: 08:18 No Known Allergies; iw - PMHx: 08:18 Diabetes mellitus; iw - PSHx: 08:18 Appendectomy; Cholecystectomy; iw - Immunization history:: Adult Immunizations up to date. - Social history:: Smoking status: Patient/guardian denies using tobacco, Stopped _ months ago 1. ROS: 08:25 Constitutional: Negative for fever, chills, and weight loss, sb4 08:25 MS/extremity: Positive for pain, swelling, of the right leg, 08:25 All other systems are negative, Exam: 08:25 Head/Face: Normocephalic, atraumatic. Eyes: Extra-ocular motions intact. Periorbital sb4 areas with no swelling, redness, or edema. ENT: Mucous membranes moist. Cardiovascular: Regular rate and rhythm with a normal S1 and S2. Respiratory: Lungs have equal breath sounds bilaterally, clear to auscultation and percussion. No rales, rhonchi or wheezes noted. No increased work of breathing, no retractions or nasal flaring. Abdomen/GI: Soft, non-tender, no distension. Skin: Warm, dry with normal turgor. Normal color with no rashes, no lesions, and no evidence of cellulitis. Neuro: Awake and alert, GCS 15, oriented to person, place, time, and situation. Motor strength 5/5 in all extremities. Sensory grossly intact. 08:25 Constitutional: The patient appears in no acute distress, alert, awake, obese, 08:25 Musculoskeletal/extremity: DVT Exam: no appreciated bluish discoloration, no erythema, pain, swelling, tenderness, increased warmth, Vital Signs: 08:17 BP 181 / 64; Pulse 64; Resp 16; Temp 97.4; Pulse Ox 99% on R/A; Weight 93.89 kg; Height iw 5 ft. 2 in. ; Pain 10/10; 09:42 BP 181 / 63; Pulse 62; Resp 17; Pulse Ox 99% ; Pain 5/10; ll1 08:17 Body Mass Index 37.86 (93.89 kg, 157.48 cm) iw 08:17 Pain Scale: Adult iw 09:42 Pain Scale: Adult ll1 MDM: 08:20 Patient medically screened. sb4 08:25 Differential diagnosis: DVT, muscle strain. sb4 09:29 Data reviewed: vital signs, nurses notes, radiologic studies, and as a result, I will sb4 discharge patient. 11/01 08:25 Order name: Extremity Venous Uni Ltd ; Complete Time: 09:22 sb4 Administered Medications: 08:34 Drug: Hydrocodone-Acetaminophen PO (7.5 mg-325 mg) 1 tabs PO once Route: PO; ll1 09:48 Follow up: Response: No adverse reaction; Pain is decreased; RASS: Alert and Calm (0) ll1 Disposition: 10:56 I was immediately available on-site in the Emergency Department for consultation in the ms3 care of the patient. Disposition Summary: 11/02/23 09:35 Discharge Ordered Notes: Location: Home sb4 Problem: new sb4 Symptoms: have improved sb4 Condition: Stable sb4 Diagnosis - Pain in right leg sb4 Followup: sb4 - With: Arnoldo Lewis MD - When: As needed - Reason: Further diagnostic work-up Discharge Instructions: - Discharge Summary Sheet sb4 - Musculoskeletal Pain sb4 Forms: - Thank You Letter sb4 - Patient Portal Instructions sb4 - Leadership Thank You Letter sb4 Prescriptions: - gabapentin 100 mg Oral capsule - take 2 capsule ORAL route every 8 hours; 30 capsule; Refills: 0, Product sb4 Selection Permitted Signatures: Dispatcher [employer] Snow Bolaños RN RN Autumn Burgess RN RN ll1 Garrick Yun DO DO ms3 Jessica Buchanan PA-C PA-C sb4
[2023-11-02 10:19] VITALS: BP 181/64; TEMP 97.4; O2SAT 99
== END ==
LOC: ER 07:56
DX: M79.604 Pain in right leg (principal); E11.9 Type 2 diabetes mellitus without complications
CPT/HCPCS: 93971; 99283

== ENCOUNTER 2024-04-26 18:42 | Emergency (ER) | payer OTHER ==
--- OUTSIDE RECORDS SUMMARY | 2024-04-26 18:45 | XMS REPORT | Continuity of Care Document ---
Author Name Unknown Address [address] [place] [address] [facility] thconnect Address [address] [place] [address] Care Team Providers Care Devulcanizer Charger Name Role Phone Devyn Regina Reynaldo Primary Care Physician [phone] ARNOLDO WEBER Attending Clinician Arnoldo Perry MD Attending Clinician [phone] Doctor Unassigned, Newman Attending Clinician U ARNOLDO Hodges Admitting Clinician Arnoldo Perry MD Admitting Clinician [phone] Payers Payer Name Policy Type Policy Number Effective Date Expirati on Date Source [facility] DUAL COMP HMO D SNP [id number] 2023 00:00:00 [employer] [id number] 2022 00:00:00 Allergies, Adverse Reactions, Alerts Allergy Name Allergy Type Status Severity Reaction(s) Onset Date Inactive Date Treating Clinician Comments Source NO KNOWN ALLERGIE S Drug Class Active [facility] Social History Social Habit Start Date Stop Date Quantity Comments Source History of tobacco use Cigarette Smoker [facility] History of Social function 2023-03-11 00:00:00 2023-03-11 00:00:00 [facility] Tobacco use and exposure 2023-02-19 00:00:00 2023-02-19 00:00:00 Smokeless tobacco non-user [facility] Tobacco Comment 2023-02-19 00:00:00 2023-02-19 00:00:00 1 cigarette per day [facility] Sex Assigned At 1950 00:00:00 1950 00:00:00 [facility] Smoking Status Start Date Stop Date Source Tobacco smoking consumption unknown [facility] Smokes tobacco daily 2023-02-19 00:00:00 [facility] Medications Ordered Medication Name Filled Medication Name Start Date Stop Date Current Medication? Ordering Clinician Indication Dosage Frequency Signature (SIG) Comments Components Source lactated ringers IV infusion 1,000 mL 03-11 15:00: 00 Yes 1000mL at 50 mL/hr, 1,000 mL, IV Infusion, CONTINUOUS , Starting on Thu03/11/23 at 1000, Until Discontinu ed, Routine, PACU [facility] HYDROmorphO ne (DILAUDID) injection 0.2 mg 03-11 14:54: 48 Yes .2mg 0.2 mg, Slow IV Push, Q5MIN PRN, 10 doses, Starting on Thu03/11/23 at 0954, Until Discontinu ed, Routine, Pain (scale 7-10), PACU
Us e approved by (Faculty): PACU USE -ANESTHESI A SERVICE-HY DROMORPHON E INJECTIONS [facility] FENTanyl PF (SUBLIMAZE (PF)) injection 25 mcg 03-11 14:54: 48 Yes 25ug 25 mcg, Slow IV Push, Q5MIN PRN, 4 doses, Starting on Thu03/11/23 at 0954, Until Discontinu ed, Routine, Pain (scale 4-6), PACU [facility] proMETHazin e (PHENERGAN) 12.5 mg in NaCl 0.9% (NS) 50 mL IV piggyback 03-11 14:54: 48 Yes 12.5mg 12.5 mg, IV Piggyback, PRN, 1 dose, Starting on Thu03/11/23 at 0954, Until Discontinu ed, Routine, Nausea and Vomiting (N/V), PACU [facility] sodium chloride (NS) injection 03-11 14:37: 00 03-11 14:47 :58 No PRN, Starting on Thu03/11/23 at 0937, Until Thu03/11/23 at 0947, Routine, Intra-op [facility] neomycin-po lymyxin-dex amethasone (MAXITROL) 3.5 mg/g-10,000 unit/g-0.1 % ophthalmic ointment 03-11 14:21: 00 03-11 14:47 :58 No PRN, Starting on Thu03/11/23 at 0921, Until Thu03/11/23 at 09, Routine, Intra-op [facility] EPINEPHrine 1:1,000 (1 mg/mL) (ADRENALIN) injection 03-11 14:20: 00 03-11 14:47 :58 No PRN, Starting on Thu03/11/23 at 0920, Until Thu03/11/23 at 09, Routine, Intra-op [facility] water for irrigation irrigation solution 03-11 14:19: 00 03-11 14:47 :58 No PRN, Starting on Thu03/11/23 at 0919, Until Thu03/11/23 at 09, Routine, Intra-op [facility] eye block syringe 11 mL 03-11 14:14: 00 03-11 14:47 :58 No PRN, Starting on Thu03/11/23 at 0914, Until Thu03/11/23 at 0947, Intra-op [facility] Hyaluronida se, Human Recomb. (HYLENEX) injection 03-11 14:14: 00 03-11 14:47 :58 No PRN, Starting on Thu03/11/23 at 0914, Until Thu03/11/23 at 0947, Routine, Intra-op [facility] chondroitin sulf-sod hyaluronate (DUOVISC VISCO ELASTIC) intraocular injection 03-11 14:14: 00 03-11 14:47 :58 No PRN, Starting on Thu03/11/23 at 0914, Until Thu03/11/23 at 0947, Routine, [facility] dexamethaso ne (DECADRON PHOSPHATE) injection 03-11 14:13: 00 03-11 14:47 :58 No PRN, Starting on Thu03/11/23 at 0913, Until Thu03/11/23 at 0947, Routine, Intra-op [facility] ceFAZolin (ANCEF) injection 03-11 14:13: 00 03-11 14:47 :58 No PRN, Starting on Thu03/11/23 at 0913, Until Thu03/11/23 at 0947, JL, Intra-op [facility] carbachoL (MIOSTAT) 0.01 % intraocular injection 03-11 14:13: 00 03-11 14:47 :58 No PRN, Starting on Thu03/11/23 at 0913, Until Thu03/11/23 at 0947, Routine, [facility] [place] [place] balanced salt irrig soln comb1 (BSS PLUS) ophthalmic solution 500 mL bag 03-11 14:12: 00 03-11 14:47 :58 No PRN, Starting on Thu03/11/23 at 0912, Until Thu03/11/23 at 09, Routine, Intra-op [facility] cyclopent 1%-tropic 1%-phenyl 2.5%-ketor 0.5% (MYDRIATIC #5) ophthalmic solution syringe 0.5 mL 03-11 13:30: 00 03-11 13:41 :00 No .5mL 0.5 mL, Right Eye, ONCE, 1 dose, On Thu03/11/23 at 0830, Routine, DSU Pre-op [facility] [place] [place] lactated ringers IV infusion 1,000 mL 03-11 13:30: 00 03-11 13:41 :00 No 1000mL at 42 mL/hr, 1,000 mL, IV Infusion, ONCE, 1 dose, On Thu03/11/23 at 0830, Routine, DSU Pre-op [facility] [place] [place] pioglitazon e 45 mg tablet 03-11 11:01: 44 Yes 45mg Take 1 tablet by mouth in the morning. [facility] metFORMIN 500 mg 24 hr tablet 03-11 11:01: 44 Yes 500mg Take 1 tablet by mouth daily with breakfast. [facility] diclofenac 50 mg tablet 03-11 11:01: 44 Yes 50mg Take 1 tablet by mouth in the morning and 1 tablet at noon and 1 tablet in the evening. [facility] semaglutide 14 mg Tab 03-11 11:01: 44 Yes Take by mouth weekly. [facility] cyclobenzap rine 10 mg tablet 03-11 11:01: 44 Yes 10mg Take 1 tablet by mouth in the morning and 1 tablet at noon and 1 tablet in the evening. [facility] lactated ringers IV infusion 1,000 mL 02-25 15:45: 00 Yes 1000mL at 50 mL/hr, 1,000 mL, IV Infusion, CONTINUOUS , Starting on Thu02/25/23 at 1045, Until Discontinu ed, Routine, PACU [facility] HYDROmorphO ne (DILAUDID) injection 0.2 mg 02-25 15:38: 13 Yes .2mg 0.2 mg, Slow IV Push, Q5MIN PRN, 10 doses, Starting on Thu02/25/23 at 1038, Until Discontinu ed, Routine, Pain (scale 7-10), PACU
Us e approved by (Faculty): PACU USE -ANESTHESI A SERVICE-HY DROMORPHON E INJECTIONS [facility] FENTanyl PF (SUBLIMAZE (PF)) injection 25 mcg 02-25 15:38: 13 Yes 25ug 25 mcg, Slow IV Push, Q5MIN PRN, 4 doses, Starting on Thu02/25/23 at 1038, Until Discontinu ed, Routine, Pain (scale 4-6), PACU [facility] proMETHazin e (PHENERGAN) 12.5 mg in NaCl 0.9% (NS) 50 mL IV piggyback 02-25 15:38: 12 Yes 12.5mg 12.5 mg, IV Piggyback, PRN, 1 dose, Starting on Thu02/25/23 at 1038, Until Discontinu ed, Routine, Nausea and Vomiting (N/V), PACU [facility] sodium chloride (NS) injection 02-25 15:28: 00 02-25 15:53 :35 No PRN, Starting on Thu02/25/23 at 1028, Until Thu02/25/23 at 1053, Routine, Intra-op [facility] neomycin-po lymyxin-dex amethasone (MAXITROL) 3.5 mg/g-10,000 unit/g-0.1 % ophthalmic ointment 02-25 15:28: 00 02-25 15:53 :35 No PRN, Starting on Thu02/25/23 at 1028, Until Thu02/25/23 at 1053, Routine, Intra-op [facility] dexamethaso ne (DECADRON PHOSPHATE) injection 02-25 15:28: 00 02-25 15:53 :35 No PRN, Starting on Thu02/25/23 at 1028, Until Thu02/25/23 at 1053, Routine, Intra-op [facility] ceFAZolin (ANCEF) injection 02-25 15:28: 00 02-25 15:53 :35 No PRN, Starting on Thu02/25/23 at 1028, Until Thu02/25/23 at 1053, JL, Intra-op [facility] carbachoL (MIOSTAT) 0.01 % intraocular injection 02-25 15:27: 00 02-25 15:53 :35 No PRN, Starting on Thu02/25/23 at 1027, Until Thu02/25/23 at 1053, Routine, Intra-op [facility] chondroitin sulf-sod hyaluronate (DUOVISC VISCO ELASTIC) intraocular injection 02-25 15:18: 00 02-25 15:53 :35 No PRN, Starting on Thu02/25/23 at 1018, Until Thu02/25/23 at 1053, Routine, Intra-op [facility] EPINEPHrine 1:1,000 (1 mg/mL) (ADRENALIN) injection 02-25 15:17: 00 02-25 15:53 :35 No PRN, Starting on Thu02/25/23 at 1017, Until Thu02/25/23 at 1053, Routine, Intra-op [facility] balanced salt irrig soln comb1 (BSS PLUS) ophthalmic solution 500 mL bag 02-25 15:17: 00 02-25 15:53 :35 No PRN, Starting on Thu02/25/23 at 1017, Until Thu02/25/23 at 1053, Routine, Intra-op [facility] water for irrigation irrigation solution 02-25 15:11: 00 02-25 15:53 :35 No PRN, Starting on Thu02/25/23 at 1011, Until Thu02/25/23 at 1053, Routine, Intra-op [facility] Hyaluronida se, Human Recomb. (HYLENEX) injection 02-25 15:07: 00 02-25 15:53 :35 No PRN, Starting on Thu02/25/23 at 1007, Until Thu02/25/23 at 1053, Routine, Intra-op [facility] eye block syringe 11 mL 02-25 15:07: 00 02-25 15:53 :35 No PRN, Starting on Thu02/25/23 at 1007, Until Thu02/25/23 at 1053, Intra-op [facility] cyclopent 1%-tropic 1%-phenyl 2.5%-ketor 0.5% (MYDRIATIC #5) ophthalmic solution syringe 0.5 mL 02-25 14:30: 00 02-25 13:44 :00 No .5mL 0.5 mL, Left Eye, ONCE, 1 dose, On Thu02/25/23 at 0930, Routine, DSU Pre-op [facility] lactated ringers IV infusion 1,000 mL 02-25 13:45: 00 02-25 13:41 :00 No 1000mL at 42 mL/hr, 1,000 mL, IV Infusion, ONCE, 1 dose, On Thu02/25/23 at 0845, Routine, DSU Pre-op [facility] pioglitazon e 45 mg tablet 02-25 11:07: 55 Yes 45mg Take 1 tablet by mouth in the morning. [facility] metFORMIN 500 mg 24 hr tablet 02-25 11:07: 55 Yes 500mg Take 1 tablet by mouth daily with breakfast. [facility] diclofenac 50 mg tablet 02-25 11:07: 55 Yes 50mg Take 1 tablet by mouth in the morning and 1 tablet at noon and 1 tablet in the evening. [facility] semaglutide 14 mg Tab 02-25 11:07: 55 Yes Take by mouth weekly. [facility] cyclobenzap rine 10 mg tablet 02-25 11:07: 55 Yes 10mg Take 1 tablet by mouth in the morning and 1 tablet at noon and 1 tablet in the evening. [facility] sulfamethox azole-trime thoprim 800-160 mg per tablet 2016-08 00:00: 00 Yes 1{tbl} Take 1 tablet by mouth every 12 (twelve) hours. [facility] lisinopril 10 mg tablet 2016-08 00:00: 00 Yes 10mg Take 1 tablet by mouth at bedtime. [facility] Vital Signs Vital Name Observation Time Observation Value Comments S ource Respiratory rate 2023-03-11 15:04:00 20 /min [facility] Oxygen saturation in Arterial blood by Pulse oximetry 2023-03-11 15:04:00 99 /min [facility] Systolic blood pressure 2023-03-11 15:02:00 107 mm[Hg] [facility] Diastolic blood pressure 2023-03-11 15:02:00 64 mm[Hg] [facility] Heart rate 2023-03-11 14:45:00 61 /min [facility] Body temperature 2023-03-11 14:42:00 36.5 Cassandra [facility] Body height 2023-03-05 15:00:00 157.5 cm [facility] Body weight 2023-03-05 15:00:00 92.534 kg [facility] BMI 2023-03-05 15:00:00 37.31 kg/m2 [facility] Systolic blood pressure 2023-03-11 13:41:00 188 mm[Hg] [facility] Diastolic blood pressure 2023-03-11 13:41:00 68 mm[Hg] [facility] Heart rate 2023-03-11 13:30:00 69 /min [facility] Body temperature 2023-03-11 13:30:00 36.33 Cassandra [facility] Respiratory rate 2023-03-11 13:30:00 21 /min [facility] Oxygen saturation in Arterial blood by Pulse oximetry 2023-03-11 13:30:00 99 /min [facility] Body height 2023-03-05 15:00:00 157.5 cm [facility] Body weight 2023-03-05 15:00:00 92.534 kg Univ [facility] BMI 2023-03-05 15:00:00 37.31 kg/m2 Univ [facility] Systolic blood pressure 2023-02-25 15:45:00 191 mm[Hg] [facility] Diastolic blood pressure 2023-02-25 15:45:00 52 mm[Hg] [facility] Heart rate 2023-02-25 15:45:00 56 /min [facility] Respiratory rate 2023-02-25 15:45:00 25 /min [facility] Oxygen saturation in Arterial blood by Pulse oximetry 2023-02-25 15:45:00 96 /min [facility] Body temperature 2023-02-25 15:32:00 36.17 Cassandra [facility] Body height 2023-02-19 16:00:00 157.5 cm [facility] Body weight 2023-02-19 16:00:00 95.255 [facility] BMI 2023-02-19 16:00:00 38.41 kg/m2 [facility] Systolic blood pressure 2023-02-25 13:35:00 192 mm[Hg] [facility] Diastolic blood pressure 2023-02-25 13:35:00 65 mm[Hg] [facility] Heart rate 2023-02-25 13:35:00 60 /min [facility] Body temperature 2023-02-25 13:35:00 36.61 Cassandra [facility] Respiratory rate 2023-02-25 13:35:00 14 /min [facility] Oxygen saturation in Arterial blood by Pulse oximetry 2023-02-25 13:35:00 98 /min [facility] Body height 2023-02-19 16:00:00 157.5 cm [facility] Body weight 2023-02-19 16:00:00 95.255 kg [facility] BMI 2023-02-19 16:00:00 38.41 kg/m2 [facility] Procedures Procedure Date / Time Performed Performing Clinician Source PHACOEMULSIFICATION OF CATARACT WITH INTRAOCULAR LENS IMPLANT 2023-03-11 14:04:00 Arnoldo Weber [facility] POCT GLUCOSE (AUTOMATED) 2023-03-11 13:36:00 Arnoldo Weber [facility] POCT GLUCOSE (AUTOMATED) 2023-03-11 13:36:00 Arnoldo Weber [facility] PHACOEMULSIFICATION OF CATARACT WITH INTRAOCULAR LENS IMPLANT 2023-02-25 14:57:00 Arnoldo Weber [facility] POCT GLUCOSE (AUTOMATED) 2023-02-25 13:34:00 Arnoldo Weber [facility] POCT GLUCOSE (AUTOMATED) 2023-02-25 13:34:00 Arnoldo Weber [facility] DAY SURGERY - ADC 2023-02-25 05:01:00 Doctor Unassigned, Newman [facility] ASSIGNMENT OF BENEFITS 2023-02-16 21:56:35 Doctor Unassigned, Newman [facility] Encounters Start Date/Time End Date/Time Encounter Type Admission Type Attending Clinicians Care Facility Care Department Encounter ID Source 2024-03-30 15:24:23 2024-03-30 15:24:23 Outpatient [facility] [id number] Steven Henderson 2023-11-03 16:57:53 2023-11-03 16:57:53 Outpatient [facility] [id number] Steven Henderson 2023-10-16 16:04:41 2023-10-16 16:04:41 Outpatient [facility] SFA [id number] Steven Henderson 2023-10-14 11:11:38 2023-10-14 11:11:38 Outpatient [facility] SFA [id number] Steven Henderson 2023-10-13 08:21:50 2023-10-13 08:21:50 Outpatient [facility] SFA [id number] Steven Henderson 2023-09-29 16:51:39 2023-09-29 16:51:39 Outpatient [facility] SFA [id number] Steven Henderson 2023-09-04 15:41:00 2023-09-04 15:41:00 Outpatient [facility]FA SFA [id number] Steven Henderson 2023-09-01 14:32:18 2023-09-01 14:32:18 Outpatient [facility]FA SFA [id number] Steven Henderson 2023-06-19 09:26:34 2023-06-19 09:26:34 Outpatient [facility]FA SFA [id number] Steven Henderson 2023-03-11 08:26:00 2023-03-11 10:10:00 Outpatient R ARNOLDO WEBER [facility] OPH [id number] [facility] 2023-03-11 08:26:00 2023-03-11 10:10:00 Hospital Encounter Arnoldo Weber [facility] [place] [id number] [facility] 2023-03-11 09:02:00 2023-03-11 09:36:00 Surgery Arnoldo Weber [facility] [place] [id number] 350.1.13.10 [id number] [facility] 2023-02-25 08:26:00 2023-02-25 11:07:00 Outpatient R ARNOLDO WEBER [facility] OPH [id number] [facility] 2023-02-25 08:26:00 2023-02-25 11:07:00 Hospital Encounter Arnoldo Weber [facility] [id number] [id number] [facility] 2023-02-25 09:33:00 2023-02-25 10:07:00 Surgery Arnoldo Weber [facility] [id number] [id number] [id number] [facility] 2023-02-25 00:00:00 2023-02-25 00:00:00 Orders Only Doctor Unassigned, Newman [facility] [id number] [id number] [id number] [facility] 2023-02-16 00:00:00 2023-02-16 00:00:00 Orders Only Doctor Unassigned, Newman [facility] [id number] [id number] [id number] [id number] [facility] 2023-02-06 10:31:10 2023-02-06 10:31:10 Outpatient [facility] [id number] Steven Henderson 2023-01-06 10:06:29 2023-01-06 10:06:29 Outpatient [facility] [id number] Steven Henderson Results Test Description Test Time Test Comments Results Result Co mments Source [facility] GLUCOSE (AUTOMATED)2023-03-11 13:37:12* Test Item Value Reference Range Interpretation Comme nts POCT GLU (test code = 3646558343) 91 mg/dL 70-110 Lab Interpretation (test cod e = 71035-1) Normal [facility] GLUCOSE (AUTOMATED)2023-02-25 13:37:35* Test Item Value Reference Range Interpretation Comme nts POCT GLU (test code = 7487990218) 83 mg/dL 70-110 Lab Interpretation (test cod e = 68272-9) [facility]25 13:37:35* Test Item Value Reference Range Interpretation Comme nts POCT GLU (test code = [id number]) 83 mg/dL 70-110 Lab Interpretation (test cod e = 95106-9) Normal [facility] History and Physical Notes Date/Time Note Provider Source 2023-03-11 08:28:31 Formatting of this n ote might be different from the original. H&P Update H&P was reviewed and the patient was examined and there was no change in the patient's condition. [facility] - Health Notes Date/Time Note Provider Source 2023-03-05 10:09:25 Formatting of this n ote might be different from the original. Images from the original note were not included. Your procedure is at [facility] on 03/11/23. The address is [address] [place] [address], [facility] staff will call you the workday before your procedure to let you know what time to arrive.On the day of your procedure, please go inside that door and check in at the desk. Please note: You may not travel home alone [...] up until two hours before your scheduled procedure. You may take your medications with a sip of water as directed by physician. Anticoagulants will be per physician guidance. Medication Note(s)/Instructions: Pt instructed to hold Metformin and Pioglitazone the morning of the procedure. Pending screening, we may test for COVID. If a patient tests positive, their cases are cancelled and/or rescheduled. COVID SCREENING NOTE: Denies COVID symptoms, no testing required. Additional requests, questions, concerns: N/A Patient verbalized understanding of pre-op instructions and voiced no further questions at this time. [facility]
--- NOTE | 2024-04-26 20:39 | RAD REPORT ---
EXAM DESCRIPTION: RAD - Knee Left 3 View - 04/26/2024 8:28 pm CLINICAL HISTORY: PAIN COMPARISON: No comparisons FINDINGS: No acute fracture or dislocation. Small suprapatellar joint effusion.
[2024-04-26] MEDS ORDERED: CODEINE 30MG/APAP 300MG TAB ONE (20:47)
--- NOTE | 2024-04-26 21:25 | ER ---
Nurse's Notes [facility] Name: Trisha Watson Age: 73 yrs Sex: Female : 1950 Arrival Date: 04/26/2024 Time: 18:42 Bed IW1 Private MD: Diagnosis: Pain in left knee Presentation: 04/26 19:15 Chief complaint: Patient states: Left knee pain onset yesterday. Pt states that she is cm10 unable to put pressure on the left leg. No trauma or injury. Coronavirus screen: Client denies travel out of the [place] in the last 14 days. At this time, the client does not indicate any symptoms associated with coronavirus-19. Ebola Screen: Patient denies travel to an Ebola-affected area in the 21 days before illness onset. No symptoms or risks identified at this time. Initial Sepsis Screen: Does the patient meet any 2 criteria? No. Patient's initial sepsis screen is negative. Does the patient have a suspected source of infection? No. Patient's initial sepsis screen is negative. Risk Assessment: Do you want to hurt yourself or someone else? Patient reports no desire to harm self or others. Onset of symptoms was April 26, 2024. 19:15 Method Of Arrival: Wheelchair cm10 19:15 Acuity: NABIL 4 cm10 Triage Assessment: 19:16 General: Appears in no apparent distress. comfortable, Behavior is calm, cooperative. cm10 Neuro: No deficits noted. Level of Consciousness is awake, alert, obeys commands, Oriented to person, place, time, situation, Appropriate for age. 21:45 Pain: Complains of pain in left leg and left knee. cm10 Historical: - Allergies: 19:16 No Known Allergies; cm10 - PMHx: 19:15 diabetes mellitus; Hypertensive disorder; cm10 - PSHx: 19:15 Cholecystectomy; Appendectomy; cm10 - Immunization history:: Adult Immunizations up to date. - Infectious Disease History:: Denies. - Social history:: Smoking status: Patient reports the use of cigarette tobacco products, denies chronic smoking, but will smoke occasionally. Screenin:45 [facility] ED Fall Risk Assessment (Adult) History of falling in the last 3 months, cm10 including since admission No falls in past 3 months (0 pts) Confusion or Disorientation No (0 pts) Intoxicated or Sedated No (0 pts) Impaired Gait No (0 pts) Mobility Assist Device Used No (0 pt) Altered Elimination No (0 pt) Score/Fall Risk Level 0 - 2 = Low Risk Oriented to surroundings, Maintained a safe environment, Hourly rounding (assess needs \T\ fall precautionary measures) done. Abuse screen: Denies threats or abuse. Denies injuries from another. Nutritional screening: No deficits noted. Tuberculosis screening: No symptoms or risk factors identified. Vital Signs: 19:15 BP 169 / 69; Pulse 82; Resp 16; Temp 97.1; Pulse Ox 100% on R/A; Weight 108.86 kg; cm10 Height 5 ft. 3 in. ; Pain 10/10; 19:15 Body Mass Index 42.51 (108.86 kg, 160.02 cm) cm10 19:15 Pain Scale: Adult cm10 ED Course: 18:44 Patient arrived in ED. ra3 18:48 Karen Garcia FNP-C [facility] kb 18:48 Boyd Nolasco MD is Attending Physician. kb 19:15 Triage completed. cm10 19:16 Arm band placed on Patient placed in waiting room. cm10 20:30 Knee Left 3 View XRAY In Process Unspecified. EDMS 21:45 Patient has correct armband on for positive identification. Provided Education on: cm10 follow-up instructions. 21:45 No provider procedures requiring assistance completed. Patient did not have IV access cm10 during this emergency room visit. Nikos wrap to left knee. Administered Medications: 20:51 Drug: Acetaminophen-Codeine PO (300 mg-30 mg) 1 tablet PO once; RASS on ADMIN: Combtv4, jb4 Very Agttd3, Agttd2, Rstlss1, AlertClm0, Drwsy-1, Lt Sdtn-2, Mod Sdtn-3, Dp Sdtn-4, UnArsble-5 Route: PO; 21:44 Follow up: Response: No adverse reaction cm10 Medication: 21:45 VIS not applicable for this client. cm10 Outcome: 21:24 Discharge ordered by . kb 21:45 Discharged to home via wheelchair, with family, cm10 21:45 Condition: good 21:45 Discharge instructions given to patient, Instructed on discharge instructions, follow up and referral plans. medication usage, Demonstrated understanding of instructions, follow-up care, medications, Prescriptions given X 2, 21:46 Patient left the ED. cm10 Signatures: Dispatcher [employer] EDKaren Carty, Estuardo Suazo RN RN jb4 Janessa Mccarty RN RN cm10 Gem Alexis ra3
--- NOTE | 2024-04-26 21:25 | EDPHYS ---
Physician Documentation [facility] Name: Trisha Watson Age: 73 yrs Sex: Female : 1950 Arrival Date: 04/26/2024 Time: 18:42 Bed IW1 Private MD: ED Physician Boyd Nolasco HPI: 04/26 21:23 This 73 yrs old Female presents to ER via Wheelchair with complaints of Knee kb Pain - left, unable to walk or stand. 21:23 Pt is a 73 year old female who presents for left knee pain that started yesterday. kb Denies injury or trauma. States pain is worse with movement and walking. Historical: - Allergies: 19:16 No Known Allergies; cm10 - PMHx: 19:15 diabetes mellitus; Hypertensive disorder; cm10 - PSHx: 19:15 Cholecystectomy; Appendectomy; cm10 - Immunization history:: Adult Immunizations up to date. - Infectious Disease History:: Denies. - Social history:: Smoking status: Patient reports the use of cigarette tobacco products, denies chronic smoking, but will smoke occasionally. ROS: 21:22 Constitutional: As per HPI kb Exam: 21:22 Constitutional: This is a well developed, well nourished patient who is awake, alert, kb and in no acute distress. Head/Face: Normocephalic, atraumatic. ENT: Moist Mucous membranes Cardiovascular: Regular rate Respiratory: Respirations even and unlabored. No increased work of breathing. Talking in full sentences Abdomen/GI: Soft, non-tender. No distention Skin: Warm, dry with normal turgor. Normal color. Neuro: Awake and alert, GCS 15, oriented to person, place, time, and situation. Moves all extremities. Normal gait. 21:22 Musculoskeletal/extremity: Extremities: grossly normal except: noted in the left knee: pain, ROM: limited active range of motion due to pain, Circulation is intact in all extremities. Sensation intact. Weight bearing: can bear weight with assistance only, uses cane, Vital Signs: 19:15 BP 169 / 69; Pulse 82; Resp 16; Temp 97.1; Pulse Ox 100% on R/A; Weight 108.86 kg; cm10 Height 5 ft. 3 in. ; Pain 10; 19:15 Body Mass Index 42.51 (108.86 kg, 160.02 cm) cm10 19:15 Pain Scale: Adult cm10 MDM: 18:48 Patient medically screened. kb 21:22 Differential diagnosis: contusion, fracture, sprain, strain. Data reviewed: vital kb signs, nurses notes. Counseling: I had a detailed discussion with the patient and/or guardian regarding the historical points, exam findings, and any diagnostic results supporting the discharge/admit diagnosis, radiology results, the need for outpatient follow up, a orthopedic surgeon, to return to the emergency department if symptoms worsen or persist or if there are any questions or concerns that arise at home. 04/26 19:19 Order name: Knee Left 3 View XRAY; Complete Time: 20:44 kb 04/26 21:23 Order name: Nikos Wrap; Complete Time: 21:44 kb Administered Medications: 20:51 Drug: Acetaminophen-Codeine PO (300 mg-30 mg) 1 tablet PO once; RASS on ADMIN: Combtv4, jb4 Very Agttd3, Agttd2, Rstlss1, AlertClm0, Drwsy-1, Lt Sdtn-2, Mod Sdtn-3, Dp Sdtn-4, UnArsble-5 Route: PO; 21:44 Follow up: Response: No adverse reaction cm10 Disposition Summary: 04/26/24 21:24 Discharge Ordered Notes: Location: Home kb Condition: Stable kb Diagnosis - Pain in left knee kb Followup: kb - With: Emergency Department - When: As needed - Reason: Worsening of condition Followup: kb - With: Private Physician - When: 2 - 3 days - Reason: Recheck today's complaints, Continuance of care, Re-evaluation by your physician Discharge Instructions: - Discharge Summary Sheet kb - Musculoskeletal Pain kb - Acute Knee Pain, Adult, [id number] kb Forms: - Medication Reconciliation Form kb - Antibiotic Education kb - Prescription Opioid Use kb - Patient Portal Instructions kb - Leadership Thank You Letter kb Prescriptions: - Ibuprofen 800 mg Oral Tablet - take 1 tablet ORAL route every 8 hours As needed take with food; 30 tablet; kb Refills: 0, Product Selection Permitted - orphenadrine citrate 100 mg Oral Tablet Sustained Release - take 1 tablet ORAL route 2 times per day As needed; 20 tablet; Refills: 0, kb Product Selection Permitted Addendum: 04/30/2024 15:48 Co-signature as Attending Physician, Boyd Nolasco MD I agree with the assessment and c de jesus plan of care. Signatures: Dispatcher [employer] Karen Oliver, STRATEGIC DEBRIEFING OFFICER-C STRATEGIC DEBRIEFING OFFICER-Boyd Conroy MD MD cha Bryson, James, RN RN jb4 Janessa Mccarty RN RN cm10
[2024-04-26 22:34] VITALS: BP 169/69; TEMP 97.1; O2SAT 100
== END 2024-04-26 21:46 | disposition home or self-care (01) ==
LOC: ER 18:42
DX: M25.562 Pain in left knee (principal)
CPT/HCPCS: 99283

== ENCOUNTER 2024-11-01 08:49 | Emergency (ER) | payer OTHER ==
--- OUTSIDE RECORDS SUMMARY | 2024-11-01 08:54 | XMS REPORT | Continuity of Care Document ---
Author Name Unknown Address [address] [place] [address] [facility] Address [address] [place] [address] Care Team Providers Care Housing Project Manager Name Role Phone Regina Shepard Primary Care Physician [phone] JOYCE WEBER Attending Clinician Joyce Perry MD Attending Clinician [phone] Doctor Unassigned, [place] Attending Clinician U JOYCE Hodges Admitting Clinician Joyce Perry MD Admitting Clinician [phone] Payers Payer Name Policy Type Policy Number Effective Date Expirati on Date Source [facility] DUAL COMP HMO D SNP [id number] 2023 00:00:00 [employer] [id number] 2022 00:00:00 Allergies, Adverse Reactions, Alerts Allergy Name Allergy Type Status Severity Reaction(s) Onset Date Inactive Date Treating Clinician Comments Source NO KNOWN ALLERGIE S Drug Class Active [facility] Social History Social Habit Start Date Stop Date Quantity Comments Source History of tobacco use Cigarette Smoker [facility] Gender [facility] History of Social function 2023-03-11 00:00:00 2023-03-11 00:00:00 [facility] Tobacco use and exposure 2023-02-19 00:00:00 2023-02-19 00:00:00 Smokeless tobacco non-user [facility] Tobacco Comment 2023-02-19 00:00:00 2023-02-19 00:00:00 1 cigarette per day [facility] Sex Assigned At 1950 00:00:00 1950 00:00:00 [facility] Smoking Status Start Date Stop Date Source Tobacco smoking consumption unknown [facility] Smokes tobacco daily 2023-02-19 00:00:00 [facility] Medications Ordered Medication Name Filled Medication Name Start Date Stop Date Current Medication? Ordering Clinician Indication Dosage Frequency Signature (SIG) Comments Components Source lactated ringers IV infusion 1,000 mL 03-11 15:00: 00 Yes 1000mL at 50 mL/hr, 1,000 mL, IV Infusion, CONTINUOUS , Starting on Thu03/11/23 at 1000, Until Discontinu ed, Routine, PACU [facility] HYDROmorphO ne (DILAUDID) injection 0.2 mg 03-11 14:54: 48 Yes .2mg 0.2 mg, Slow IV Push, Q5MIN PRN, 10 doses, Starting on Thu03/11/23 at 0954, Until Discontinu ed, Routine, Pain (scale 7-10), PACU
Us e approved by (Faculty): PACU USE -ANESTHESI A SERVICE-HY DROMORPHON E INJECTIONS [facility] FENTanyl PF (SUBLIMAZE (PF)) injection 25 mcg 03-11 14:54: 48 Yes 25ug 25 mcg, Slow IV Push, Q5MIN PRN, 4 doses, Starting on Thu03/11/23 at 0954, Until Discontinu ed, Routine, Pain (scale 4-6), PACU [facility] proMETHazin e (PHENERGAN) 12.5 mg in NaCl 0.9% (NS) 50 mL IV piggyback 03-11 14:54: 48 Yes 12.5mg 12.5 mg, IV Piggyback, PRN, 1 dose, Starting on Thu03/11/23 at 0954, Until Discontinu ed, Routine, Nausea and Vomiting (N/V), PACU [facility] sodium chloride (NS) injection 03-11 14:37: 00 03-11 14:47 :58 No PRN, Starting on Thu03/11/23 at 0937, Until Thu03/11/23 at 09, Routine, Intra-op [facility] neomycin-po lymyxin-dex amethasone (MAXITROL) 3.5 mg/g-10,000 unit/g-0.1 % ophthalmic ointment 03-11 14:21: 00 03-11 14:47 :58 No PRN, Starting on Thu03/11/23 at 0921, Until Thu03/11/23 at 09, Routine, Intra-op [facility] EPINEPHrine 1:1,000 (1 mg/mL) (ADRENALIN) injection 03-11 14:20: 00 03-11 14:47 :58 No PRN, Starting on Thu03/11/23 at 0920, Until Thu03/11/23 at 09, Routine, Intra-op [facility] water for irrigation irrigation solution 03-11 14:19: 00 03-11 14:47 :58 No PRN, Starting on Thu03/11/23 at 0919, Until Thu03/11/23 at 09, Routine, Intra-op [facility] eye block syringe 11 mL 03-11 14:14: 00 03-11 14:47 :58 No PRN, Starting on Thu03/11/23 at 0914, Until Thu03/11/23 at 0947, Intra-op [facility] Hyaluronida se, Human Recomb. (HYLENEX) injection 03-11 14:14: 00 03-11 14:47 :58 No PRN, Starting on Thu03/11/23 at 0914, Until Thu03/11/23 at 0947, Routine, Intra-op [facility] chondroitin sulf-sod hyaluronate (DUOVISC VISCO ELASTIC) intraocular injection 03-11 14:14: 00 03-11 14:47 :58 No PRN, Starting on Thu03/11/23 at 0914, Until Thu03/11/23 at 0947, Routine, Intra-op [facility] dexamethaso ne (DECADRON PHOSPHATE) injection 03-11 14:13: 00 03-11 14:47 :58 No PRN, Starting on Thu03/11/23 at 0913, Until Thu03/11/23 at 0947, Routine, Intra-op [facility] ceFAZolin (ANCEF) injection 03-11 14:13: 00 03-11 14:47 :58 No PRN, Starting on Thu03/11/23 at 0913, Until Thu03/11/23 at 0947, JL, Intra-op [facility] carbachoL (MIOSTAT) 0.01 % intraocular injection 03-11 14:13: 00 03-11 14:47 :58 No PRN, Starting on Thu03/11/23 at 0913, Until Thu03/11/23 at 0947, Routine, Intra-op [facility] balanced salt irrig soln comb1 (BSS PLUS) ophthalmic solution 500 mL bag 03-11 14:12: 00 03-11 14:47 :58 No PRN, Starting on Thu03/11/23 at 0912, Until Thu03/11/23 at 09, Routine, Intra-op [facility] cyclopent 1%-tropic 1%-phenyl 2.5%-ketor 0.5% (MYDRIATIC #5) ophthalmic solution syringe 0.5 mL 03-11 13:30: 00 03-11 13:41 :00 No .5mL 0.5 mL, Right Eye, ONCE, 1 dose, On Thu03/11/23 at 0830, Routine, DSU Pre-op [facility] lactated ringers IV infusion 1,000 mL 03-11 13:30: 00 03-11 13:41 :00 No 1000mL at 42 mL/hr, 1,000 mL, IV Infusion, ONCE, 1 dose, On Thu03/11/23 at 0830, Routine, DSU Pre-op [facility] pioglitazon e 45 mg tablet 03-11 11:01: 44 Yes 45mg Take 1 tablet by mouth in the morning. [facility] metFORMIN 500 mg 24 hr tablet 03-11 11:01: 44 Yes 500mg Take 1 tablet by mouth daily with breakfast. [facility] diclofenac 50 mg tablet 03-11 11:01: 44 Yes 50mg Take 1 tablet by mouth in the morning and 1 tablet at noon and 1 tablet in the evening. [facility] semaglutide 14 mg Tab 03-11 11:01: 44 Yes Take by mouth weekly. [facility] cyclobenzap rine 10 mg tablet 03-11 11:01: 44 Yes 10mg Take 1 tablet by mouth in the morning and 1 tablet at noon and 1 tablet in the evening. [facility] lactated ringers IV infusion 1,000 mL 02-25 15:45: 00 Yes 1000mL at 50 mL/hr, 1,000 mL, IV Infusion, CONTINUOUS , Starting on Thu02/25/23 at 1045, Until Discontinu ed, Routine, PACU [facility] HYDROmorphO ne (DILAUDID) injection 0.2 mg 02-25 15:38: 13 Yes .2mg 0.2 mg, Slow IV Push, Q5MIN PRN, 10 doses, Starting on Thu02/25/23 at 1038, Until Discontinu ed, Routine, Pain (scale 7-10), PACU
Us e approved by (Faculty): PACU USE -ANESTHESI A SERVICE-HY DROMORPHON E INJECTIONS [facility] FENTanyl PF (SUBLIMAZE (PF)) injection 25 mcg 02-25 15:38: 13 Yes 25ug 25 mcg, Slow IV Push, Q5MIN PRN, 4 doses, Starting on Thu02/25/23 at 1038, Until Discontinu ed, Routine, Pain (scale 4-6), PACU [facility] proMETHazin e (PHENERGAN) 12.5 mg in NaCl 0.9% (NS) 50 mL IV piggyback 02-25 15:38: 12 Yes 12.5mg 12.5 mg, IV Piggyback, PRN, 1 dose, Starting on Thu02/25/23 at 1038, Until Discontinu ed, Routine, Nausea and Vomiting (N/V), PACU [facility] sodium chloride (NS) injection 02-25 15:28: 00 02-25 15:53 :35 No PRN, Starting on Thu02/25/23 at 1028, Until Thu02/25/23 at 1053, Routine, Intra-op [facility] neomycin-po lymyxin-dex amethasone (MAXITROL) 3.5 mg/g-10,000 unit/g-0.1 % ophthalmic ointment 02-25 15:28: 00 02-25 15:53 :35 No PRN, Starting on Thu02/25/23 at 1028, Until Thu02/25/23 at 1053, Routine, Intra-op [facility] dexamethaso ne (DECADRON PHOSPHATE) injection 02-25 15:28: 00 02-25 15:53 :35 No PRN, Starting on Thu02/25/23 at 1028, Until Thu02/25/23 at 1053, Routine, Intra-op [facility] ceFAZolin (ANCEF) injection 02-25 15:28: 00 02-25 15:53 :35 No PRN, Starting on Thu02/25/23 at 1028, Until Thu02/25/23 at 1053, JL, Intra-op [facility] carbachoL (MIOSTAT) 0.01 % intraocular injection 02-25 15:27: 00 02-25 15:53 :35 No PRN, Starting on Thu02/25/23 at 1027, Until Thu02/25/23 at 1053, Routine, Intra-op [facility] chondroitin sulf-sod hyaluronate (DUOVISC VISCO ELASTIC) intraocular injection 02-25 15:18: 00 02-25 15:53 :35 No PRN, Starting on Thu02/25/23 at 1018, Until Thu02/25/23 at 1053, Routine, Intra-op [facility] EPINEPHrine 1:1,000 (1 mg/mL) (ADRENALIN) injection 02-25 15:17: 00 02-25 15:53 :35 No PRN, Starting on Thu02/25/23 at 1017, Until Thu02/25/23 at 1053, Routine, Intra-op [facility] balanced salt irrig soln comb1 (BSS PLUS) ophthalmic solution 500 mL bag 02-25 15:17: 00 02-25 15:53 :35 No PRN, Starting on Thu02/25/23 at 1017, Until Thu02/25/23 at 1053, Routine, Intra-op [facility] water for irrigation irrigation solution 02-25 15:11: 00 02-25 15:53 :35 No PRN, Starting on Thu02/25/23 at 1011, Until Thu02/25/23 at 1053, Routine, Intra-op [facility] Hyaluronida se, Human Recomb. (HYLENEX) injection 02-25 15:07: 00 02-25 15:53 :35 No PRN, Starting on Thu02/25/23 at 1007, Until Thu02/25/23 at 1053, Routine, Intra-op [facility] eye block syringe 11 mL 02-25 15:07: 00 02-25 15:53 :35 No PRN, Starting on Thu02/25/23 at 1007, Until Thu02/25/23 at 1053, Intra-op [facility] cyclopent 1%-tropic 1%-phenyl 2.5%-ketor 0.5% (MYDRIATIC #5) ophthalmic solution syringe 0.5 mL 02-25 14:30: 00 02-25 13:44 :00 No .5mL 0.5 mL, Left Eye, ONCE, 1 dose, On Thu02/25/23 at 0930, Routine, [facility] 1,000 mL 02-25 13:45: 00 02-25 13:41 :00 No 1000mL at 42 mL/hr, 1,000 mL, IV Infusion, ONCE, 1 dose, On Thu02/25/23 at 0845, Routine, DSU Pre-op [facility] pioglitazon e 45 mg tablet 02-25 11:07: 55 Yes 45mg Take 1 tablet by mouth in the morning. [facility] metFORMIN 500 mg 24 hr tablet 02-25 11:07: 55 Yes 500mg Take 1 tablet by mouth daily with breakfast. [facility] diclofenac 50 mg tablet 02-25 11:07: 55 Yes 50mg Take 1 tablet by mouth in the morning and 1 tablet at noon and 1 tablet in the evening. [facility] semaglutide 14 mg Tab 02-25 11:07: 55 Yes Take by mouth weekly. [facility] cyclobenzap rine 10 mg tablet 02-25 11:07: 55 Yes 10mg Take 1 tablet by mouth in the morning and 1 tablet at noon and 1 tablet in the evening. [facility] lisinopril 10 mg tablet 2016-08 00:00: 00 Yes 10mg Take 1 tablet by mouth at bedtime. [facility] sulfamethox azole-trime thoprim 800-160 mg per tablet 2016-08 00:00: 00 Yes 1{tbl} Take 1 tablet by mouth every 12 (twelve) hours. [facility] Vital Signs Vital Name Observation Time Observation Value Comments S ource Respiratory rate 2023-03-11 15:04:00 20 /min [facility] Oxygen saturation in Arterial blood by Pulse oximetry 2023-03-11 15:04:00 99 /min [facility] Systolic blood pressure 2023-03-11 15:02:00 107 mm[Hg] [facility] Diastolic blood pressure 2023-03-11 15:02:00 64 mm[Hg] [facility] Heart rate 2023-03-11 14:45:00 61 /min [facility] Body temperature 2023-03-11 14:42:00 36.5 Cassandra [facility] Body height 2023-03-05 15:00:00 157.5 cm [facility] Body weight 2023-03-05 15:00:00 92.534 kg [facility] BMI 2023-03-05 15:00:00 37.31 kg/m2 [facility] Systolic blood pressure 2023-03-11 13:41:00 188 mm[Hg] [facility] Diastolic blood pressure 2023-03-11 13:41:00 68 mm[Hg] [facility] Heart rate 2023-03-11 13:30:00 69 /min [facility] Body temperature 2023-03-11 13:30:00 36.33 Cassandra [facility] Respiratory rate 2023-03-11 13:30:00 21 /min [facility] Oxygen saturation in Arterial blood by Pulse oximetry 2023-03-11 13:30:00 99 /min [facility] Body height 2023-03-05 15:00:00 157.5 cm [facility] Body weight 2023-03-05 15:00:00 92.534 kg [facility] BMI 2023-03-05 15:00:00 37.31 kg/m2 [facility] Systolic blood pressure 2023-02-25 15:45:00 191 mm[Hg] [facility] Diastolic blood pressure 2023-02-25 15:45:00 52 mm[Hg] [facility] Heart rate 2023-02-25 15:45:00 56 /min [facility] Respiratory rate 2023-02-25 15:45:00 25 /min [facility] Oxygen saturation in Arterial blood by Pulse oximetry 2023-02-25 15:45:00 96 /min [facility] Body temperature 2023-02-25 15:32:00 36.17 Cassandra [facility] Body height 2023-02-19 16:00:00 157.5 cm [facility] Body weight 2023-02-19 16:00:00 95.255 kg [facility] BMI 2023-02-19 16:00:00 38.41 kg/m2 [facility] Systolic blood pressure 2023-02-25 13:35:00 192 mm[Hg] [facility] Diastolic blood pressure 2023-02-25 13:35:00 65 mm[Hg] [facility] Heart rate 2023-02-25 13:35:00 60 /min [facility] Body temperature 2023-02-25 13:35:00 36.61 Cassandra [facility] Respiratory rate 2023-02-25 13:35:00 14 /min [facility] Oxygen saturation in Arterial blood by Pulse oximetry 2023-02-25 13:35:00 98 /min [facility] Body height 2023-02-19 16:00:00 157.5 cm [facility] Body weight 2023-02-19 16:00:00 95.255 kg [facility] BMI 2023-02-19 16:00:00 38.41 kg/m2 [facility] Procedures Procedure Date / Time Performed Performing Clinician Source PHACOEMULSIFICATION OF CATARACT WITH INTRAOCULAR LENS IMPLANT 2023-03-11 14:04:00 Joyce Weber [facility] POCT GLUCOSE (AUTOMATED) 2023-03-11 13:36:00 Joyce Weber [facility] POCT GLUCOSE (AUTOMATED) 2023-03-11 13:36:00 Joyce Weber [facility] PHACOEMULSIFICATION OF CATARACT WITH INTRAOCULAR LENS IMPLANT 2023-02-25 14:57:00 Joyce Weber [facility] POCT GLUCOSE (AUTOMATED) 2023-02-25 13:34:00 Joyce Weber [facility] POCT GLUCOSE (AUTOMATED) 2023-02-25 13:34:00 Joyce Weber [facility] DAY SURGERY - ADC 2023-02-25 05:01:00 Doctor Unassigned, [place] [facility] ASSIGNMENT OF BENEFITS 2023-02-16 21:56:35 Doctor Unassigned, [place] [facility] Encounters Start Date/Time End Date/Time Encounter Type Admission Type Attending Clinicians Care Facility Care Department Encounter ID Source 2024-05-03 13:12:36 2024-05-03 13:12:36 Outpatient S[facility] [id number] Steven Henderson 2024-03-30 15:24:23 2024-03-30 15:24:23 Outpatient [facility] [id number] Steven Henderson 2023-11-03 16:57:53 2023-11-03 16:57:53 Outpatient SFA [id number] [id number] Steven Henderson 2023-10-16 16:04:41 2023-10-16 16:04:41 Outpatient SFA [id number] [id number] Steven Henderson 2023-10-14 11:11:38 2023-10-14 11:11:38 Outpatient SFA SFA [id number] Steven Henderson 2023-10-13 08:21:50 2023-10-13 08:21:50 Outpatient SFA SFA [id number] Steven Henderson 2023-09-29 16:51:39 2023-09-29 16:51:39 Outpatient SFA SFA [id number] Steven Henderson 2023-09-04 15:41:00 2023-09-04 15:41:00 Outpatient SFA SFA [id number] Steven Henderson 2023-09-01 14:32:18 2023-09-01 14:32:18 Outpatient SFA SFA [id number] Steven Henderson 2023-06-19 09:26:34 2023-06-19 09:26:34 Outpatient SFA SFA [id number] Steven Henderson 2023-03-11 08:26:00 2023-03-11 10:10:00 Outpatient R JOYCE WEBER [facility] OPH [id number] [facility] 2023-03-11 08:26:00 2023-03-11 10:10:00 Hospital Encounter Joyce Weber [facility] 1..840.114 [id number] [id number] [id number] [facility] 2023-03-11 09:02:00 2023-03-11 09:36:00 Surgery Joyce Weber [facility] [id number] 350.1.13.10 [id number] [id number] [facility] 2023-02-25 08:26:00 2023-02-25 11:07:00 Outpatient R JOYCE WEBER [facility] OPH [id number] [facility] 2023-02-25 08:26:00 2023-02-25 11:07:00 Hospital Encounter Joyce Weber [facility] [id number] 350.1.13.10 [id number] [id number] [facility] 2023-02-25 09:33:00 2023-02-25 10:07:00 Surgery Joyce Weber [facility] [id number] 350.1.13.10 [id number] [id number] [facility] 2023-02-25 00:00:00 2023-02-25 00:00:00 Orders Only Doctor Unassigned, [place] [facility] [id number] 350.1.13.10 [id number] [id number] [facility] 2023-02-16 00:00:00 2023-02-16 00:00:00 Orders Only Doctor Unassigned, [place] [facility] [id number] 350.1.13.10 [id number] [id number] [facility] 2023-02-06 10:31:10 2023-02-06 10:31:10 Outpatient [facility] [id number] Steven Hendreson 2023-01-06 10:06:29 2023-01-06 10:06:29 Outpatient SFA [facility] [id number] Steven Henderson Results Test Description Test Time Test Comments Results Result Co mments Source [facility] 13:37:12* Test Item Value Reference Range Interpretation Comme nts POCT GLU (test code = 6051978349) 91 mg/dL 70-110 Lab Interpretation (test cod e = 35311-0) Normal [facility] GLUCOSE (AUTOMATED)2023-02-25 13:37:35* Test Item Value Reference Range Interpretation Comme nts POCT GLU (test code = 7836782460) 83 mg/dL 70-110 Lab Interpretation (test cod e = 54022-0) Normal [facility] GLUCOSE (AUTOMATED)2023-02-25 13:37:35* Test Item Value Reference Range Interpretation Comme nts POCT GLU (test code = 2603067260) 83 mg/dL 70-110 Lab Interpretation (test cod e = 58582-0) Normal [facility] History and Physical Notes Date/Time Note Provider Source 2023-03-11 08:28:31 Formatting of this n ote might be different from the original. H&P Update H&P was reviewed and the patient was examined and there was no change in the patient's condition. [facility] - Health Notes Date/Time Note Provider Source 2023-03-05 10:09:25 Formatting of this n ote might be different from the original. Images from the original note were not included. Your procedure is at [facility] on 03/11/23. The address is [address] [place] [address], [facility]. [facility] nursing staff will call you the workday [...] voiced no further questions at this time. [facility]
--- NOTE | 2024-11-01 10:20 | RAD REPORT ---
Procedure: Chest Pa And Lat (2 Views) HISTORY: Cough COMPARISON: 2020 FINDINGS: The lungs appear clear of acute infiltrate. No significant pleural effusion noted. The heart is mildly enlarged. IMPRESSION: No acute abnormality is displayed.
[2024-11-01 11:10] LABS: Absolute Eosinophils 0.1 K/uL (0-0.5); Absolute Lymphocytes (CBC) 1.5 K/uL (0.7-4.9); Absolute Monocytes 0.4 K/uL (0.1-1.3); Absolute Neutrophil 5.5 K/uL (1.8-8.0); Basophils % 0.4 % (0-1.3); Eosinophils % 1.6 % (0-4.4); Hematocrit 41.5 % (36.0-45.0); Hemoglobin 14.1 g/dL (12.0-15.0); Lymphocytes % 19.4 % (15.3-44.8); MCH 28.5 pg (27.0-35.0); MCHC 33.9 g/dL (32.0-36.0); MPV 9.1 fL (7.6-11.3); Neutrophils % 73.6 % (41.7-73.7); Nucleated Red Blood Cells % 0.1 % (0-0); Platelets 180 thou/uL (152-406); RBC Red Blood Cell Count 4.94 M/uL (3.86-4.86); Red Cell Distribution Width 16.4 % (12.1-15.2)
[2024-11-01 11:22] LABS: Anion Gap 7.8 mEq/L (5.0-15.0); Potassium 3.8 mEq/L (3.5-5.1); Troponin High Sensitivity 4.4 pg/mL (<58.9)
[2024-11-01 11:25] LABS: Influenza A Ag Negative; Influenza B Ag Negative; SARS-CoV-2 Antigen Rapid Res Negative (Negative)
--- NOTE | 2024-11-01 14:09 | ER ---
Nurse's Notes [facility] Name: Trisha Watson Age: 73 yrs Sex: Female : 1950 Arrival Date: 11/01/2024 Time: 08:49 Bed 16 Private MD: Diagnosis: Acute upper respiratory infection, unspecified Presentation: 11/01 09:41 Chief complaint: Productive cough, SOB that is worse when supine, sinus congestion, and hb body aches x 2-3 days. Coronavirus screen: Client presents with at least one sign or symptom that may indicate coronavirus-19. Standard/surgical mask placed on the client. Provider contacted for isolation considerations. Ebola Screen: No symptoms or risks identified at this time. Initial Sepsis Screen: Does the patient meet any 2 criteria? No. Patient's initial sepsis screen is negative. Does the patient have a suspected source of infection? No. Patient's initial sepsis screen is negative. Risk Assessment: Do you want to hurt yourself or someone else? Patient reports no desire to harm self or others. Onset of symptoms was October 30, 2024. 09:41 Method Of Arrival: Ambulatory hb 09:41 Acuity: NABIL 3 hb Historical: - Allergies: 09:42 No Known Allergies; hb - PMHx: 09:42 diabetes mellitus; Hypertensive disorder; hb - PSHx: 09:42 Appendectomy; Cholecystectomy; hb - Immunization history:: Adult Immunizations up to date. - Infectious Disease History:: Denies. - Social history:: Smoking status: Patient reports the use of cigarette tobacco products. Screenin:48 [facility] ED Fall Risk Assessment (Adult) History of falling in the last 3 months, kc6 including since admission No falls in past 3 months (0 pts) Confusion or Disorientation No (0 pts) Intoxicated or Sedated No (0 pts) Impaired Gait No (0 pts) Mobility Assist Device Used Yes (1 pt) Altered Elimination No (0 pt) Score/Fall Risk Level 0 - 2 = Low Risk Oriented to surroundings, Maintained a safe environment, Educated pt \T\ family on fall prevention, incl call for assistance when getting out of bed. Abuse screen: Denies threats or abuse. Denies injuries from another. Nutritional screening: No deficits noted. Tuberculosis screening: No symptoms or risk factors identified. Assessment: 14:49 General: Appears in no apparent distress. comfortable, obese, well groomed, well kc6 developed, Behavior is calm, cooperative, appropriate for age, Reports feeling ill for 2-3 days, fatigue for 2-3 days. Pain: Denies pain. Neuro: Level of Consciousness is awake, alert, obeys commands, Oriented to person, place, time, situation, Appropriate for age. Cardiovascular: Denies chest pain, Heart tones S1 S2 present Capillary refill < 3 seconds Rhythm is regular. Respiratory: Reports shortness of breath at rest on exertion cough that is productive, Airway is patent Trachea midline Respiratory effort is even, labored, Respiratory pattern is regular, symmetrical, Breath sounds with wheezes bilaterally. GI: No signs and/or symptoms were reported involving the gastrointestinal system. : No signs and/or symptoms were reported regarding the genitourinary system. EENT: Reports nasal congestion. Derm: No signs and/or symptoms reported regarding the dermatologic system. Skin is intact, is healthy with good turgor, Skin is pink, warm \T\ dry. Musculoskeletal: No signs and/or symptoms reported regarding the musculoskeletal system. Circulation, motion, and sensation intact. Range of motion: intact in all extremities. Vital Signs: 09:41 BP 187 / 94; Pulse 88; Resp 20; Temp 98(O); Pulse Ox 97% on R/A; Weight 108.86 kg; hb Height 5 ft. 3 in. ; Pain 5/10; 14:14 BP 196 / 95; Pulse 71; Resp 20 S; Pulse Ox 98% on R/A; kc6 14:47 BP 155 / 85; Pulse 65; Resp 16 S; Pulse Ox 96% on R/A; kc6 09:41 Body Mass Index 42.51 (108.86 kg, 160.02 cm) hb 09:41 Pain Scale: Adult hb ED Course: 08:53 Patient arrived in ED. cj3 09:42 Triage completed. hb 09:42 Arm band placed on. hb 10:01 Sebastian Whaley MD is Attending Physician. jj9 10:09 Chest Pa And Lat (2 Views) XRAY In Process Unspecified. EDMS 10:40 COVID-19 Ag + Flu A+B Ag Sent. bc6 10:41 Basic Metabolic Panel Sent. bc6 10:41 CBC with Diff Sent. bc6 10:41 Troponin HS Sent. bc6 10:41 Initial lab(s) drawn, by nm, sent to lab. Inserted saline lock: 20 gauge in right bc6 antecubital area, using aseptic technique. Blood collected. Flushed with 10 mL NS. 14:13 Layne Davis, RN is Primary Nurse. kc6 14:48 Patient has correct armband on for positive identification. Bed in low position. Call kc6 light in reach. Side rails up X 1. monitor technician on. Pulse ox on. NIBP on. Door closed. Noise minimized. Lights dimmed. Pillow given. Verbal reassurance given. 14:48 No provider procedures requiring assistance completed. IV discontinued, intact, kc6 bleeding controlled, No redness/swelling at site. Pressure dressing applied. Patient maintains SpO2 saturation greater than 95% on room air. Administered Medications: 14:35 Drug: Labetalol IV 20 mg IV at bolus once over 2 mins Route: IV; Rate: bolus; Infused kc6 Over: 2 mins; Site: right antecubital; 14:48 Follow up: Response: No adverse reaction; Blood pressure is lowered; IV Status: kc6 Completed infusion; IV Intake: 4ml Medication: 14:50 VIS not applicable for this client. kc6 Intake: 14:48 IV: 4ml; Total: 4ml. kc6 Outcome: 14:08 Discharge ordered by . jj9 14:50 Discharged to home ambulatory, kc6 14:50 Condition: good 14:50 Discharge instructions given to patient, Instructed on discharge instructions, follow up and referral plans. medication usage, Demonstrated understanding of instructions, follow-up care, medications, Prescriptions given X 2, 14:50 Patient left the ED. kc6 Signatures: Dispatcher [employer] EDMS Kailyn Waters, ISAK PARISI Layne Davis, ISAK RN kc6 Inez Perkins 6 Mesha Resendiz 3 Sebastian Whaley MD MD jj9
--- NOTE | 2024-11-01 14:09 | EDPHYS ---
Physician Documentation [facility] Name: Trisha Watson Age: 73 yrs Sex: Female : 1950 Arrival Date: 11/01/2024 Time: 08:49 Bed 16 Private MD: ED Physician Sebastian Whaley HPI: 11/01 16:46 This 73 yrs old Female presents to ER via Ambulatory with complaints of jj9 Breathing Difficulty, Wheezing, Congestion. 11:15 73-year-old female comes emergency department complaint of 3 days of cough, congestion, jj9 body aches, shortness of breath and malaise. There are several family members sick with cough and congestion. The patient history of diabetes, hypertension, obesity. She denies fever, chills, nausea or vomiting.. Historical: - Allergies: 09:42 No Known Allergies; hb - PMHx: 09:42 diabetes mellitus; Hypertensive disorder; hb - PSHx: 09:42 Appendectomy; Cholecystectomy; hb - Immunization history:: Adult Immunizations up to date. - Infectious Disease History:: Denies. - Social history:: Smoking status: Patient reports the use of cigarette tobacco products. ROS: 11:15 Constitutional: Negative for fever, chills, and weight loss, Eyes: Negative for injury, jj9 pain, redness, and discharge, ENT: Runny nose, cough, congestion Neck: Negative for injury, pain, and swelling, Cardiovascular: Negative for chest pain, palpitations, and edema, Respiratory: Cough Abdomen/GI: Negative for abdominal pain, nausea, vomiting, diarrhea, and constipation, Back: Negative for injury and pain, MS/Extremity: Negative for injury and deformity, Skin: Negative for injury, rash, and discoloration, Neuro: Negative for headache, weakness, numbness, tingling, and seizure, Psych: Negative for depression, anxiety, suicide ideation, homicidal ideation, and hallucinations, Allergy/Immunology: Negative for hives, rash, and allergies, Endocrine: Negative for neck swelling, polydipsia, polyuria, polyphagia, and marked weight changes, Hematologic/Lymphatic: Negative for swollen nodes, abnormal bleeding, and unusual bruising, Exam: 11:16 Constitutional: This is a well developed, well nourished patient who is awake, alert, jj9 and in no acute distress. Head/Face: Normocephalic, atraumatic. Eyes: Pupils equal round and reactive to light, extra-ocular motions intact. Lids and lashes normal. Conjunctiva and sclera are non-icteric and not injected. Cornea within normal limits. Periorbital areas with no swelling, redness, or edema. ENT: Runny nose, cough, congestion Neck: Trachea midline, no thyromegaly or masses palpated, and no cervical lymphadenopathy. Supple, full range of motion without nuchal rigidity, or vertebral point tenderness. No Meningismus. Chest/axilla: Normal chest wall appearance and motion. Nontender with no deformity. No lesions are appreciated. Cardiovascular: Regular rate and rhythm with a normal S1 and S2. No gallops, murmurs, or rubs. Normal PMI, no JVD. No pulse deficits. Respiratory: Lungs have equal breath sounds bilaterally, clear to auscultation and percussion. No rales, rhonchi or wheezes noted. No increased work of breathing, no retractions or nasal flaring. Abdomen/GI: Soft, non-tender, with normal bowel sounds. No distension or tympany. No guarding or rebound. No evidence of tenderness throughout. Back: No spinal tenderness. No costovertebral tenderness. Full range of motion. Skin: Warm, dry with normal turgor. Normal color with no rashes, no lesions, and no evidence of cellulitis. MS/ Extremity: Pulses equal, no cyanosis. Neurovascular intact. Full, normal range of motion. Neuro: Awake and alert, GCS 15, oriented to person, place, time, and situation. Cranial nerves II-XII grossly intact. Motor strength 5/5 in all extremities. Sensory grossly intact. Cerebellar exam normal. Normal gait. Psych: Awake, alert, with orientation to person, place and time. Behavior, mood, and affect are within normal limits. 11:17 ECG was reviewed by the Attending Physician. A-fib, rate of 83, no ST-T changes. jj9 Vital Signs: 09:41 BP 187 / 94; Pulse 88; Resp 20; Temp 98(O); Pulse Ox 97% on R/A; Weight 108.86 kg; hb Height 5 ft. 3 in. ; Pain 5/10; 14:14 BP 196 / 95; Pulse 71; Resp 20 S; Pulse Ox 98% on R/A; kc6 14:47 BP 155 / 85; Pulse 65; Resp 16 S; Pulse Ox 96% on R/A; kc6 09:41 Body Mass Index 42.51 (108.86 kg, 160.02 cm) hb 09:41 Pain Scale: Adult hb MDM: 10:01 Medical Screening Exam initiated jj9 11:17 Differential diagnosis: asthma, Bronchitis pneumonia, pulmonary edema, reactive airway jj9 disease. 11:17 Data reviewed: vital signs, nurses notes. jj9 14:05 ED course: 73-year-old female comes emergency department for evaluation of cough, jj9 congestion for the last 2 to 3 days. Several sick members in the household as well. Workup today negative for flu, COVID there is no evidence of pneumonia on x-rays and the rest of her labs are within normal. Patient has history of arrhythmia possibly A-fib. She is pending a cardiology evaluation. She is currently stable normal heart rate hypertensive she has not taken her blood pressure medications. Will treat her hypertension with labetalol. Start Tessalon perle, continue medications, f/u with PCP and return to the ED if worsening of symptoms. The patient understands and agrees with the plan. . 11/01 09:43 Order name: Basic Metabolic Panel; Complete Time: 12:53 hb 11/01 09:43 Order name: CBC with Diff; Complete Time: 12:53 hb 11/01 09:43 Order name: Troponin HS; Complete Time: 12:53 hb 11/01 09:43 Order name: COVID-19 Ag + Flu A+B Ag; Complete Time: 12:53 hb 11/01 09:43 Order name: Chest Pa And Lat (2 Views) XRAY; Complete Time: 12:53 hb 11/01 09:43 Order name: EKG; Complete Time: 09:44 hb 11/01 09:43 Order name: Cardiac monitoring; Complete Time: 13:56 hb 11/01 09:43 Order name: EKG - Nurse/Tech; Complete Time: 10:41 hb 11/01 09:43 Order name: IV Saline Lock; Complete Time: 13:56 hb 11/01 09:43 Order name: Labs collected and sent; Complete Time: 10:41 hb 11/01 09:43 Order name: O2 Per Protocol; Complete Time: 13:56 hb 11/01 09:43 Order name: O2 Sat Monitoring; Complete Time: 13:56 hb 11/01 14:14 Order name: EKG - Nurse/Tech; Complete Time: 14:35 kc6 Administered Medications: 14:35 Drug: Labetalol IV 20 mg IV at bolus once over 2 mins Route: IV; Rate: bolus; Infused kc6 Over: 2 mins; Site: right antecubital; 14:48 Follow up: Response: No adverse reaction; Blood pressure is lowered; IV Status: kc6 Completed infusion; IV Intake: 4ml Disposition Summary: 11/01/24 14:08 Discharge Ordered Notes: Location: Home 9 Condition: Stable j9 Problem: new jj9 Diagnosis - Acute upper respiratory infection, unspecified jj9 Followup: jj9 - With: Private Physician - When: - Reason: Re-evaluation by your physician Discharge Instructions: - Discharge Summary Sheet jj9 - Upper Respiratory Infection, Adult jj9 Forms: - Medication Reconciliation Form jj9 - Antibiotic Education jj9 - Prescription Opioid Use jj9 - Patient Portal Instructions jj9 - Leadership Thank You Letter jj9 Prescriptions: - Tessalon Perles 100 mg Oral Capsule - take 1 capsule ORAL route every 8 hours As needed; 15 capsule; Refills: 0, jj9 Product Selection Permitted - Doxycycline Hyclate 100 mg Oral tablet - take 1 tablet ORAL route every 12 hours; 14 tablet; Refills: 0, Product jj9 Selection Permitted Signatures: Dispatcher [employer] Kailyn Jean Baptiste RN RN Layne Davis RN RN kc6 Sebastian Whaley MD MD jj9
[2024-11-01] MEDS ORDERED: LABETALOL 20 MG/4ML SYRINGE IV ONE (14:28)
[2024-11-01 17:59] VITALS: TEMP 98
[2024-11-01 18:06] VITALS: BP 155/85; O2SAT 96
--- NOTE | 2024-11-02 12:29 | EKG ---
Test Date: 2024-11-01 Test Time: 14:34:33 [place] [employer] Assembler: WILI MEASUREMENT RESULTS: Intervals: Rate: 78 DC: QRSD: 78 QT: 406 QTc: 462 [place]: P: DC: QRS: 79 T: 65 INTERPRETIVE STATEMENTS: Atrial fibrillation Abnormal ECG Compared to ECG 11/01/2024 10:46:50 No significant changes Electronically Signed On 11-02-24 12:25:41 CDT by Pato Young
--- NOTE | 2024-11-02 12:30 | EKG ---
Test Date: 2024-11-01 Test Time: 10:46:50 Animal Care Assistant: ALEX MEASUREMENT RESULTS: Intervals: Rate: 83 [place]: QRSD: 84 QT: 410 QTc: 481 [place]: P: [place]: QRS: 67 T: 0 INTERPRETIVE STATEMENTS: Atrial fibrillation Abnormal ECG Compared to ECG 11/01/2012 21:44:10 Sinus bradycardia no longer present Electronically Signed On 11-02-24 12:25:55 CDT by Pato Young
== END 2024-11-01 14:50 | disposition home or self-care (01) ==
LOC: ER 08:49
DX: J06.9 Acute upper respiratory infection, unspecified (principal); Z11.52 Encounter for screening for COVID-19; Z72.0 Tobacco use
CPT/HCPCS: 36415; 71046; 80048; 84484; 85025; 87428; 93005; 96374; 99285